=== PATIENT | female | born 2000 | race Caucasian/White ===

== ENCOUNTER 2018-09-25 22:47 | Emergency (ER) | payer OTHER, SELFPAY ==
[2018-09-25 22:48] VITALS: PULSE 101; RESP 18; TEMP 37.4; O2SAT 100; BMI 52.6
[2018-09-25] MEDS: Ondansetron 4 MG/2 ML Vial IV (23:28)
[2018-09-25] MEDS: Morphine 4 MG/ML Syringe IV (23:28)
[2018-09-25 23:47] LABS: Absolute Lymphocyte Count 2.32 X10^3/ul (0.83-4.51); Absolute Neutrophil Count 11.8 X10^3/uL (2.0-7.7); Basophil# 0.04 X10^3/uL; Basophil% 0.3 % (0-1); Eosinophil# 0.16 X10^3/uL; Hematocrit 41.7 % (37-47); Lymphocyte # 2.32 X10^3/ul (4.0); Lymphocyte % 14.8 % (19-41); Mean Corp Hgb Conc 33.6 g/gl (32-36); Mean Corpuscular Hgb 28.2 pg (27.0-32.0); Mean Corpuscular Volume 84.1 fL (81-99); Mean Platelet Vol. 8.6 fl (6.2-12.0); Monocyte# 1.32 X10^3/uL; Monocyte% 8.4 % (0-10); Neutrophil # 11.76 X10^3/uL (2.7-7.7); Neutrophil % 75.1 % (47-70); POSITIVE COUNT NO; POSITIVE DIFFERENTIAL NO; POSITIVE MORPHOLOGY NO; Platelet Count 281 K/mm3 (150-450); RBC Distribution Width CV 12.5 % (11.6-14.6); RBC Distribution Width SD 37.5 fl (35.1-43.9); Red Blood Count 4.96 M/mm3 (4.2-5.4); White Blood Count 15.7 K/mm3 (4.4-11.0)
[2018-09-25 23:55] LABS: Prothrombin Time (Protime)PT. 13.5 SECONDS (11.7-14.9)
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
[2018-09-26 00:01] LABS: BUN 11 mg/dL (7-18); Creatinine, Serum 0.75 mg/dL (0.55-1.02); Glucose 110 mg/dL (74-106)
[2018-09-26 00:02] LABS: ALB/GLOB Ratio 0.8 RATIO (0.9-2.4); AST(SGOT) 18 U/L (15-37); Alanine Aminotransfer ALT/SGPT 24 U/L (13-56); Albumin, Serum 3.7 g/dL (3.2-5.0); Alkaline Phosphatase 100 U/L (45-117); Anion Gap 7 (5-15); BUN/Creat Ratio 14.6 RATIO (10-20); Calcium,Total 9.1 mg/dL (8.5-10.1); Chloride 108 mmol/L (98-107); EST Glomerular Filtration Rate 104 mL/min (>60); Est Glom Filt Rate - Afr Amer 125 mL/min (>60); Estimated Creatinine Clearance 94.63 ml/min; Globulin 4.4 g/dL (2.2-4.2); Potassium 3.3 mmol/L (3.5-5.1); Protein, Total 8.1 g/dL (6.4-8.2); Sodium Level 138 mmol/L (136-145)
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
[2018-09-26 00:21] LABS: Alcohol, Blood (Medical)-Serum < 3.0 mg/dL
[2018-09-26 00:35] LABS: Pregnancy, Serum, hCG Quali. NEGATIVE Negative (0-9 Nonpreg)
[2018-09-26 00:47] VITALS: BP 135/80; PULSE 86; RESP 14; O2SAT 98
[2018-09-26 02:00] VITALS: BP 141/89; PULSE 85; RESP 16; O2SAT 99
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
[2018-09-26 03:10] VITALS: BP 146/90; PULSE 95; RESP 14; O2SAT 98
== END 2018-09-26 03:12 | disposition home or self-care (01) ==
PROVIDERS: Emergency Provider Emergency Medicine
DX: S43.402A Unspecified sprain of left shoulder joint, initial encounter (principal); S13.4XXA Sprain of ligaments of cervical spine, initial encounter; S50.01XA Contusion of right elbow, initial encounter; S80.811A Abrasion, right lower leg, initial encounter; R06.00 Dyspnea, unspecified; R68.84 Jaw pain; V89.2XXA Person injured in unspecified motor-vehicle accident, traffic, initial encounter; Y93.9 Activity, unspecified; Y92.9 Unspecified place or not applicable; Z72.0 Tobacco use
CPT/HCPCS: 70450; 70486; 71260; 72125; 73030; 73080; 73564; 73590; 74177; 80053; 80320; 84703; 85025; 85610; 96374; 96375; 99285; Q9967; A4216; G0480; J2405

== ENCOUNTER 2020-08-26 13:16 | Emergency (ER) | payer SELFPAY ==
[2020-08-26 13:17] VITALS: BP 127/71; PULSE 96; RESP 18; TEMP 36.4; O2SAT 97; BMI 43.9
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
--- NOTE | 2020-08-26 13:35 | ED.VIS.GEN ---
History of Present Illness Chief Complaint: Headache Informant: Patient Narrative: 20-year-old female with no past medical history presents with concern for 4 days of headache. States it is been intermittent. Aching and diffuse. Denies any fever, chills, neck pain. States she has intermittent nausea without vomiting. Denies any head injury. Past Medical History - Allergies and Home Meds Allergies/Adverse Reactions: Allergies tetanus and diphtheria toxoids Allergy (Verified 08/26/20 13:18) Hives Primary Care Physician: Ildefonso Hamilton MD [Primary Care Provider] - Prior records reviewed: Yes Past Medical History: None Surgical History: no surgical history Lives: With Family Smoking Status: Current every day smoker Alcohol: None Drugs: None Review of Systems General: Denies: Chills, Fever, Sweats Eyes: Denies: Visual changes - bilaterally, Diplopia ENT: Denies: Rhinorrhea, Sore throat Cardiovascular: Denies: Chest pain, Palpitations Respiratory: Denies: Dyspnea, Cough, Dyspnea on exertion Gastrointestinal: Denies: Abdominal pain, Nausea, Vomiting, Diarrhea, Melena, Hematochezia Genitourinary: Denies: Dysuria, Hematuria, Frequency Musculoskeletal: Denies: Back pain, Extremity Pain Skin: Denies: Rash, Wounds Neurological: Reports: Headache. Denies: Weakness, Numbness Physical Exam Vital Signs/Narrative: Vital Signs Temp Pulse Resp BP Pulse Ox 08/26/20 13:17 97.5 F L 96 18 127/71 H 97 Inital Vital Signs reviewed: Yes General: Well nourished, Well developed, No Acute Distress Head: Normocephalic, Atraumatic Eyes: Perrl, EOMI ENT: Moist mucous membranes, No rhinorrhea Neck: Supple, Nontender Cardiovascular: Regular rate, Regular rhythm, No murmurs Respiratory: No distress, CTA bilaterally, Chest nontender Abdomen: Soft, Nontender, Nondistended, Normal bowel sounds Back: Nontender, Normal Inspection Extremities: Nontender, No edema Skin: Normal color, No rash Neurological: Alert, Oriented x3, Cranial nerves II-XII grossly intact, Normal Strength, Normal Sensation Psychological: Normal affect, Normal Mood Diagnostic/Tx/Re-eval Clinical Impression(s) from Imaging Studies Brain CT 08/26/20 13:34 IMPRESSION: Normal unenhanced CT scan of the brain. Electronically Signed: Lopez Paul MD at 15:02 EST , Service support , Laboratory Data 08/26/20 14:15 Urine Color Yellow Urine Clarity Sl. Cloudy Urine pH 7.0 Ur Specific [place] 1.010 Urine Protein 15 H Urine Glucose (UA) Normal Urine Ketones Negative Urine Occult Blood Negative Urine Nitrite Negative Urine Bilirubin Negative Urine Urobilinogen Normal Ur Leukocyte Esterase 100 H Urine RBC 0 SEEN Urine WBC 0-5 SEEN Ur Squamous Epith Cells 0-5 SEEN Urine Bacteria 1+ Urine Mucus 0 SEEN Urine Test Negative - Medical Decision Making Appears well and nontoxic. Vital signs within normal limits. No focal deficit. CT brain negative. Patient was given 1 L of normal saline, Reglan, Benadryl, Toradol. Patient continued to have a headache and was given Decadron. On reevaluation at 1645 patient is continuing to complain of a headache. States it feels more occipital at this time. CTA was ordered and patient was given magnesium. Patient will be signed out to oncoming physician pending CTA of the head and neck. Impression: 1. Acute headache ED Disposition - Plan for ED Patient: Referrals: Ildefonso Hamilton MD [Primary Care Provider] -
[2020-08-26 14:22] LABS: Mucous, Urine 0 SEEN /hpf (<or=2+); Red Blood Cells-Urine 0 SEEN /hpf (0-5)
[2020-08-26 14:28] LABS: Color, Urine Yellow (Yellow); Glucose, Dipstick Normal (Normal); Ketone-Dipstick Negative (Negative); Leukocyte Esterase-Dipstick 100 /ul (Negative); Nitrite-Dipstick Negative (Negative); Occult Blood-Urine Negative /ul (Negative); Protein-Dipstick 15 mg/dl (Negative); Urine Bilirubin Dipstick Negative (Negative); Urine Clarity Sl. Cloudy (Clear); Urine Urobilinogen Normal (Normal)
[2020-08-26] MEDS: Metoclopramide 10 MG/2 ML Vial 5 MG IV (14:28)
[2020-08-26] MEDS: DiphenhydrAMINE 50 MG/ML Syringe 25 MG IV (14:28)
[2020-08-26] MEDS: 0.9% Normal Saline 1,000 ML 999 ML IV (14:28)
[2020-08-26 14:31] LABS: Internal QC Validated? YES +Cl - CLEAR BKGD; Pregnancy, Urine Negative Negative
[2020-08-26 14:34] LABS: Bacteria 1+ /hpf (None Seen); Squamous Epithelial Cells - UA 0-5 SEEN /hpf (5-10); White Blood Cells 0-5 SEEN /hpf (0-5)
[2020-08-26 16:03] VITALS: BP 129/77; PULSE 77; RESP 16; O2SAT 100
[2020-08-26] MEDS: dexAMETHasone 10 MG/ML Vial IV (16:14)
[2020-08-26] MEDS: Ketorolac 15 MG/ML Vial IV (16:14)
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
[2020-08-26 18:03] VITALS: BP 146/86; PULSE 73; RESP 16; O2SAT 98
[2020-08-26 20:18] VITALS: BP 128/75; PULSE 75; RESP 16
== END 2020-08-26 20:19 | disposition home or self-care (01) ==
PROVIDERS: Emergency Provider Emergency Medicine
DX: R51.9 Headache, unspecified (principal); R11.0 Nausea; F17.200 Nicotine dependence, unspecified, uncomplicated
CPT/HCPCS: 70450; 70496; 70498; 81001; 81025; 96361; 96365; 96366; 96374; 96375; 99284; J7030; Q9967; A4216

== ENCOUNTER 2020-09-13 14:36 | Emergency (ER) | payer SELFPAY ==
[2020-09-13 14:36] VITALS: BP 137/79; PULSE 79; RESP 18; TEMP 36.6; O2SAT 98; BMI 49.4
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
[2020-09-13] MEDS: dexAMETHasone 4 MG Tablet 8 MG PO (15:26)
== END 2020-09-13 15:27 | disposition home or self-care (01) ==
LOC: ED 15:15
PROVIDERS: Emergency Provider Emergency Medicine
DX: J03.90 Acute tonsillitis, unspecified (principal); F17.200 Nicotine dependence, unspecified, uncomplicated
CPT/HCPCS: 99283

== ENCOUNTER → 2021-07-23 16:26 | Outpatient (CLI) | payer OTHER, SELFPAY ==
[2021-07-23 17:30] LABS: Absolute Lymphocyte Count 1.83 X10^3/uL (0.83-4.51); Absolute Neutrophil Count 7.1 X10^3/uL (2.0-7.7); Basophil# 0.04 X10^3/uL; Basophil% 0.4 % (0-1); Eosinophil# 0.16 X10^3/uL; Eosinophils% 1.6 % (0-5); Hematocrit 38.7 % (37-47); Hemoglobin 12.9 g/dL (12.0-15.0); Lymphocyte # 1.83 X10^3/ul (0.83-4.51); Lymphocyte % 18.2 % (19-41); Mean Corp Hgb Conc 33.3 g/dL (32-36); Mean Corpuscular Hgb 28.5 pg (27.0-32.0); Mean Corpuscular Volume 85.4 fL (81-99); Mean Platelet Vol. 8.6 fl (6.2-12.0); Monocyte# 0.83 X10^3/uL; Monocyte% 8.3 % (0-10); NRBC Flagged by Analyzer 0 % (0-5); Neutrophil # 7.12 X10^3/uL (2.7-7.7); Platelet Count 247 K/mm3 (150-450); RBC Distribution Width CV 12.1 % (11.6-14.6); RBC Distribution Width SD 37.9 fl (35.1-43.9); Red Blood Count 4.53 M/mm3 (4.2-5.4)
[2021-07-23 17:41] LABS: Glucose Challenge Gest 1H 50g 127 mg/dL (70-140)
[2021-07-23 18:16] LABS: Amphetamine Urine VISTA NEGATIVE (<1000 ng/mL); Barbiturate Urine VISTA NEGATIVE (< 200 ng/mL); Benzodiazepine Urine VISTA NEGATIVE (< 200 ng/mL); Cocaine Urine VISTA NEGATIVE (< 300 ng/mL); Ecstacy Urine VISTA NEGATIVE (< 500 ng/mL); Methadone Urine VISTA NEGATIVE (< 300 ng/mL); PCP Urine VISTA NEGATIVE (< 25 ng/mL); THC Urine VISTA POSITIVE (< 50 ng/mL); Vista UDS pH Range 6
[2021-07-24 08:46] LABS: HIV - WCH Non-Reactive (Nonreactive); Hepatitis B Surface Antigen Non-Reactive (Nonreactive); Hepatitis C Antibody Non-Reactive (Nonreactive); Rubella IgG Reactive (Nonreactive); Syphilis Antibodies Non-reactive
[2021-07-26 02:07] LABS: Chlamydia By Nucleic Acid AMP Negative (Negative)
[2021-07-26 07:45] LABS: Gonococcus By Nucleic Acid AMP Negative (Negative)
[2021-07-29 13:27] LABS: HPV Reflexed? NOT INDICATED
== END ==
PROVIDERS: Visit Provider Obstetrics & Gynecology
DX: Z34.90 Encounter for supervision of normal pregnancy, unspecified, unspecified trimester (principal)
CPT/HCPCS: 36415; 80307; 82950; 85025; 86703; 86762; 86780; 86803; 86850; 86900; 86901; 87086; 87088; 87340; 87491; 87591; 88175; G0145

== ENCOUNTER → 2021-12-18 | Outpatient (CLI) | payer MEDICAID, SELFPAY ==
[2021-12-18 10:34] LABS: Absolute Lymphocyte Count 2.59 X10^3/uL (0.83-4.51); Absolute Neutrophil Count 10.8 X10^3/uL (2.0-7.7); Basophil# 0.06 X10^3/uL; Basophil% 0.4 % (0-1); Eosinophil# 0.45 X10^3/uL; Eosinophils% 2.9 % (0-5); Hematocrit 38.1 % (37-47); Hemoglobin 12.8 g/dL (12.0-15.0); Lymphocyte # 2.59 X10^3/ul (0.83-4.51); Lymphocyte % 16.8 % (19-41); Mean Corp Hgb Conc 33.6 g/dL (32-36); Mean Corpuscular Hgb 29.2 pg (27.0-32.0); Mean Platelet Vol. 8.4 fl (6.2-12.0); Monocyte% 7.8 % (0-10); NRBC Flagged by Analyzer 0 % (0-5); Neutrophil # 10.84 X10^3/uL (2.7-7.7); Neutrophil % 70.3 % (47-70); Platelet Count 255 K/mm3 (150-450); RBC Distribution Width CV 12.5 % (11.6-14.6); RBC Distribution Width SD 39.4 fl (35.1-43.9); Red Blood Count 4.38 M/mm3 (4.2-5.4); White Blood Count 15.4 K/mm3 (4.4-11.0)
[2021-12-18 10:59] LABS: Glucose Challenge Gest 1H 50g 101 mg/dL (70-140)
[2021-12-18 12:53] LABS: Amphetamine Urine VISTA NEGATIVE (<1000 ng/mL); Barbiturate Urine VISTA NEGATIVE (< 200 ng/mL); Benzodiazepine Urine VISTA NEGATIVE (< 200 ng/mL); Cocaine Urine VISTA NEGATIVE (< 300 ng/mL); Ecstacy Urine VISTA NEGATIVE (< 500 ng/mL); Methadone Urine VISTA NEGATIVE (< 300 ng/mL); PCP Urine VISTA NEGATIVE (< 25 ng/mL); THC Urine VISTA NEGATIVE (< 50 ng/mL); Vista UDS pH Range 6
== END | disposition home or self-care (01) ==
PROVIDERS: Referring Provider Nurse Practitioner Women's Health; Visit Provider Nurse Practitioner Women's Health
DX: O99.322 Drug use complicating pregnancy, second trimester (principal); F12.10 Cannabis abuse, uncomplicated; Z3A.26 26 weeks gestation of pregnancy; Z13.1 Encounter for screening for diabetes mellitus
CPT/HCPCS: 36415; 80307; 82950; 85025; 86850; 86900; 86901

== ENCOUNTER → 2022-01-09 | Outpatient (CLI) | payer MEDICAID, SELFPAY ==
--- NOTE | 2022-01-09 08:59 | US_ITS ---
STUDY: SECOND AND THIRD TRIMESTER OBSTETRICAL ULTRASOUND REASON FOR EXAM: Female, 21 years old growth LMP: 05/25/2021. TECHNIQUE: Transabdominal TECHNICAL QUALITY: Adequate. PRIOR ULTRASOUND: None. FINDINGS: There is a single intrauterine fetus. The fetus is in a cephalic presentation. There is demonstrated cardiac activity with a heart rate of 158 bpm. There is a normal amniotic fluid volume. The largest amniotic fluid pocket measures 6.4 cm. The amniotic fluid index (KARLA) is 17.9 cm. The placenta is fundal and posterior in location. There are Grade 1 placental changes. The cervix measures 3.6 cm in length. The adnexal regions are not visualized. BIOMETRY: BPD: 8.29 cm: 33 weeks, 2 days HC: 30.37 cm: 33 weeks, 5 days AC: 28.91 cm: 32 weeks, 6 days FL: 5.99 cm: 31 weeks, 1 days CI: 81% FL/BPD: 72% FL/HC: FL/AC: 21% HC/AC: 1.05 age by current US: 32 weeks, 4 days. ENEDELIA by current US: 03/02/2022. Estimated weight: 2002 grams, +/- 300 grams, 79 %. Age by LMP: 31 weeks, 2 days. ENEDELIA by LMP: 03/11/2022. US/OB Limited With Biometrics IMPRESSION: Single live intrauterine gestation with a mean gestational age of 32 weeks and 4 days. Electronically Signed: Lopez Paul MD at 10:35 EDT ,
== END | disposition home or self-care (01) ==
LOC: OPUS 08:57
PROVIDERS: Referring Provider Obstetrics & Gynecology; Visit Provider Obstetrics & Gynecology
DX: U07.1 COVID-19 (principal)
CPT/HCPCS: 76816

== ENCOUNTER → 2022-01-21 | Outpatient (CLI) | payer MEDICAID, SELFPAY ==
--- NOTE | 2022-01-21 12:25 | US_ITS ---
STUDY: OBSTETRICAL ULTRASOUND - BIOPHYSICAL PROFILE REASON FOR EXAM: Female, 21 years old BPP for obesity in LMP: 06/04/2021. PRIOR ULTRASOUND: Comparison is made with prior study dated 01/09/2022. TECHNIQUE: Transabdominal TECHNICAL QUALITY: Adequate. FINDINGS: There is a single intrauterine fetus. The fetus is in a cephalic presentation. There is demonstrated cardiac activity with a heart rate of 132 bpm. There is a normal amniotic fluid volume. The largest amniotic fluid pocket measures 4.9 cm. The amniotic fluid index (KARLA) is 13.2 cm. The placenta is fundal and posterior. There are Grade 1 placental changes. Age by LMP: 33 weeks, 0 days. ENEDELIA by LMP: 03/11/2022. BIOPHYSICAL PROFILE: Breathing Movements (FBM): 2 Gross Body Movements (GBM): 2 Tone (FT): 2 Amniotic Fluid Volume (AFV): 2 TOTAL SCORE: / US/Biophysical Prof W/O Non Stres IMPRESSION: Normal biophysical profile of 03/16. Electronically Signed: Lopez Paul MD at 14:01 EDT ,
== END | disposition home or self-care (01) ==
LOC: OPUS 12:23
PROVIDERS: Visit Provider Obstetrics & Gynecology
DX: O99.210 Obesity complicating pregnancy, unspecified trimester (principal); Z3A.00 Weeks of gestation of pregnancy not specified
CPT/HCPCS: 76819

== ENCOUNTER → 2022-01-30 | Outpatient (CLI) | payer MEDICAID, SELFPAY ==
--- NOTE | 2022-01-30 12:59 | US_ITS ---
STUDY: OBSTETRICAL ULTRASOUND - BIOPHYSICAL PROFILE REASON FOR EXAM: Female, 21 years old. OBESITY -- WEEKLY BPP PRIOR ULTRASOUND: 01/21/2022 TECHNIQUE: Transabdominal TECHNICAL QUALITY: Adequate. FINDINGS: There is a single intrauterine fetus. The fetus is in a cephalic presentation. There is demonstrated cardiac activity with a heart rate of 147 bpm. There is a normal amniotic fluid volume. The largest amniotic fluid pocket measures 8.4 cm. The amniotic fluid index (KARLA) is 20.2 cm. The placenta is fundal in location. There are Grade 1 placental changes. Age by LMP: 34 weeks, 2 days. ENEDELIA by LMP: 8.3.22. . BIOPHYSICAL PROFILE: Breathing Movements (FBM): 2 Gross Body Movements (GBM): 2 Tone (FT): 2 Amniotic Fluid Volume (AFV): 2 TOTAL SCORE: US/Biophysical Prof W/O Non Stres IMPRESSION: Normal biophysical profile of 03/16. There is a single live intrauterine with a heart rate of 147 bpm. Electronically Signed: Steve Puente MD at 14:58 EDT Reading Location ID and State: [facility] / [place] , Service support ,
== END | disposition home or self-care (01) ==
LOC: OPUS 12:57
PROVIDERS: Visit Provider Obstetrics & Gynecology
DX: O99.210 Obesity complicating pregnancy, unspecified trimester (principal); Z3A.00 Weeks of gestation of pregnancy not specified
CPT/HCPCS: 76819

== ENCOUNTER → 2022-02-06 | Outpatient (CLI) | payer MEDICAID, SELFPAY ==
--- NOTE | 2022-02-06 08:02 | US_ITS ---
STUDY: SECOND AND THIRD TRIMESTER OBSTETRICAL ULTRASOUND REASON FOR EXAM: Female, 21 years old growth -- obesity, covid LMP: 06/04/2021 TECHNIQUE: Transabdominal TECHNICAL QUALITY: Adequate. PRIOR ULTRASOUND: Comparison is made with prior study dated 01/30/2022 FINDINGS: There is a single intrauterine fetus. The fetus is in a cephalic presentation. There is demonstrated cardiac activity with a heart rate of 137 bpm. There is a normal amniotic fluid volume. The largest amniotic fluid pocket measures 8.3 cm. The amniotic fluid index (KARLA) is 23.7 cm. This is upper limits of normal. The placenta is fundal in location. There are Grade 1 placental changes. The cervix measures 3 cm in length. The adnexal regions are not visualized. BIOMETRY: BPD: 9.3 cm: 37 weeks, 4 days HC: 33.6 on: 38 weeks, 4 days AC: 33 cm: 36 weeks, 6 days FL: 7 cm: 35 weeks, 6 days CI: 80% FL/BPD: 76% FL/HC: FL/AC: 21% HC/AC: 1.02 age by current US: 37 weeks, 1 days. ENEDELIA by current US: 02/26/2022. Estimated weight: 3070 grams, +/- 461 grams, 88 %. age by prior US: 36 weeks, 4 days. ENEDELIA by prior US: 03/02/2022. Age by LMP: 35 weeks, 2 days. ENEDELIA by LMP: 03/11/2022. IMPRESSION: Single live intrauterine gestation with a mean gestational age of 36 weeks and 4 days. The measurements obtained today following within the normal expected range. Electronically Signed: Lopez Paul MD at 9:14 EDT , STUDY: OBSTETRICAL ULTRASOUND - BIOPHYSICAL PROFILE REASON FOR EXAM: Female, 21 years old growth -- obesity, covid LMP: PRIOR ULTRASOUND: None. TECHNIQUE: TECHNICAL QUALITY: Adequate. FINDINGS: BIOPHYSICAL PROFILE: Breathing Movements (FBM): 0 Gross Body Movements (GBM): 2 Tone (FT): 2 Amniotic Fluid Volume (AFV): 2 TOTAL SCORE: US/OB Limited With Biometrics IMPRESSION: biophysical profile of 01/14. Electronically Signed: Lopez Paul MD at 9:15 EDT ,
== END | disposition home or self-care (01) ==
PROVIDERS: Visit Provider Obstetrics & Gynecology
DX: O98.513 Other viral diseases complicating pregnancy, third trimester (principal); O99.213 Obesity complicating pregnancy, third trimester; E66.9 Obesity, unspecified; Z3A.37 37 weeks gestation of pregnancy; U07.1 COVID-19
CPT/HCPCS: 76816; 76819

== ENCOUNTER 2022-02-08 13:00 | Outpatient (CLI) | payer MEDICAID, SELFPAY ==
[2022-02-08 13:09] VITALS: BP 116/70; PULSE 100; TEMP 36.8
[2022-02-08 13:18] VITALS: BMI 55.4
--- NOTE | 2022-02-08 20:48 | OB.TRI.PN_ITS ---
Progress Notes Progress Note: Patient presents for triage evaluation secondary to obesity and recent 6/8 bpp FHT: 140 Moderate variability reactive no decelerations category I tracing [place]: no regular Contractions Assessment and plan: obesity Reactive NST, reassuring maternal and status patient discharged to home to follow-up as scheudled. See problem list details for additional plan information. Charges/Coding Procedures Urinary/Genital 52xxx-59xxx: 19754-52 non-stress test Interp
== END 2022-02-08 14:07 | disposition home or self-care (01) ==
LOC: WPOUT 13:05 → WP 13:06
PROVIDERS: Referring Provider Obstetrics & Gynecology; Visit Provider Obstetrics & Gynecology
DX: O99.210 Obesity complicating pregnancy, unspecified trimester (principal); Z3A.00 Weeks of gestation of pregnancy not specified
CPT/HCPCS: 59025; 59050; 99218; G0378

== ENCOUNTER → 2022-02-13 | Outpatient (CLI) | payer MEDICAID, SELFPAY ==
--- NOTE | 2022-02-13 09:01 | US_ITS ---
STUDY: OBSTETRICAL ULTRASOUND - BIOPHYSICAL PROFILE REASON FOR EXAM: Female, 21 years old well being LMP: 06/04/2021. PRIOR ULTRASOUND: Comparison is made with prior study dated 02/06/2022. TECHNIQUE: Transabdominal TECHNICAL QUALITY: Adequate. FINDINGS: There is a single intrauterine fetus. The fetus is in a cephalic presentation. There is demonstrated cardiac activity with a heart rate of 144 bpm. There is a normal amniotic fluid volume. The largest amniotic fluid pocket measures 7.8 cm. The amniotic fluid index (KARLA) is 26.8 cm. This is in the 97th percentile for a 36 week gestation. The placenta is fundal and posterior in location. There are Grade 1 placental changes. Age by LMP: 36 weeks, 2 days. ENEDELIA by LMP: 03/11/2022. BIOPHYSICAL PROFILE: Breathing Movements (FBM): 2 Gross Body Movements (GBM): 2 Tone (FT): 2 Amniotic Fluid Volume (AFV): 2 TOTAL SCORE: 8 / 8 US/Biophysical Prof W/O Non Stres IMPRESSION: Normal biophysical profile of 8/8. The amniotic fluid index is in the 97th percentile for 36 week gestation. Electronically Signed: Lopez Paul MD at 9:51 EDT ,
== END | disposition home or self-care (01) ==
PROVIDERS: Referring Provider Obstetrics & Gynecology; Visit Provider Obstetrics & Gynecology
DX: Z34.93 Encounter for supervision of normal pregnancy, unspecified, third trimester (principal)
CPT/HCPCS: 76819; 87081

== ENCOUNTER → 2022-02-20 | Outpatient (CLI) | payer MEDICAID, SELFPAY ==
--- NOTE | 2022-02-20 08:59 | US_ITS ---
STUDY: OBSTETRICAL ULTRASOUND - BIOPHYSICAL PROFILE REASON FOR EXAM: Female, 21 years old OBESITY LMP: 06/04/2021. PRIOR ULTRASOUND: Comparison is made with prior study dated 02/13/2022. TECHNIQUE: Transabdominal TECHNICAL QUALITY: Adequate. FINDINGS: There is a single intrauterine fetus. The fetus is in a cephalic presentation. There is demonstrated cardiac activity with a heart rate of 155 bpm. There is a normal amniotic fluid volume. The largest amniotic fluid pocket measures 8.1 cm. The amniotic fluid index (KARLA) is 21 cm. The placenta is fundal and posterior in location. There are Grade 2 placental changes. Age by LMP: 37 weeks, 2 days. ENEDELIA by LMP: 03/11/2022. BIOPHYSICAL PROFILE: Breathing Movements (FBM): 2 Gross Body Movements (GBM): 2 Tone (FT): 2 Amniotic Fluid Volume (AFV): 2 TOTAL SCORE: US/Biophysical Prof W/O Non Stres IMPRESSION: Normal biophysical profile of 03/16. Electronically Signed: Lopez Paul MD at 9:53 EDT ,
== END | disposition home or self-care (01) ==
LOC: OPUS 08:53
PROVIDERS: Visit Provider Obstetrics & Gynecology
DX: O99.210 Obesity complicating pregnancy, unspecified trimester (principal); Z3A.00 Weeks of gestation of pregnancy not specified
CPT/HCPCS: 76819

== ENCOUNTER → 2022-02-27 | Outpatient (CLI) | payer MEDICAID, SELFPAY ==
--- NOTE | 2022-02-27 09:06 | US_ITS ---
STUDY: OBSTETRICAL ULTRASOUND - BIOPHYSICAL PROFILE REASON FOR EXAM: Female, 21 years old wellbeing LMP: 06/04/2021. PRIOR ULTRASOUND: Comparison made with prior examination dated 02/20/2022. TECHNIQUE: Transabdominal TECHNICAL QUALITY: Adequate. FINDINGS: There is a single intrauterine fetus. The fetus is in a cephalic presentation. There is demonstrated cardiac activity with a heart rate of 158 bpm. There is a normal amniotic fluid volume. The largest amniotic fluid pocket measures 6. cm. The amniotic fluid index (KARLA) is 16.2 cm. The placenta is fundal and posterior in location. There are Grade 2 placental changes. Age by LMP: 30 weeks, 2 days. ENEDELIA by LMP: 03/11/2022. BIOPHYSICAL PROFILE: Breathing Movements (FBM): 2 Gross Body Movements (GBM): 2 Tone (FT): 2 Amniotic Fluid Volume (AFV): 2 TOTAL SCORE: 8 / 8 US/Biophysical Prof W/O Non Stres IMPRESSION: Normal biophysical profile of 03/16. Electronically Signed: Lopez Paul MD at 10:17 EDT ,
== END | disposition home or self-care (01) ==
LOC: OPUS 08:57
PROVIDERS: Referring Provider Obstetrics & Gynecology; Visit Provider Obstetrics & Gynecology
DX: O40.3XX0 Polyhydramnios, third trimester, not applicable or unspecified (principal); Z3A.00 Weeks of gestation of pregnancy not specified
CPT/HCPCS: 76819

== ENCOUNTER 2022-03-05 07:00 | Outpatient (CLI) | payer MEDICAID, SELFPAY ==
[2022-03-05 07:28] VITALS: BP 137/68; PULSE 100; O2SAT 98
[2022-03-05 07:29] VITALS: TEMP 36.8; BMI 57.0
--- NOTE | 2022-03-05 10:57 | OB.TRI.HP_ITS ---
HPI - General General Date of Admission: 02/03/22 HPI Narrative NARAYAN MACHADO, is a 22 y/o @ 39 weeks who presents to L&D for NST due to polyhydramnios. She was scheduled for an induction initially but there is a staffing issue. An NST was ordered for reassurance and she is rescheduled for Wednesday am. (03/09/22) Maternal Data Information ENEDELIA Calculator Estimated Delivery Date Method Current WG Current Estimate 03/11/22 Ultrasound #1 39w 4d Other Estimates 03/01/22 LMP (Certain) 41w 0d PFSH PFSH Medical History Anxiety and depression Lab test positive for detection of COVID-19 virus Migraines Ovarian cyst Home Medications vitamin#30 30 mg iron-10 mg iron-folic acid 1 mg-omg3 capsule 1 cap PO DAILY 07/23/21 [History Last Taken 1 Day Ago ~02/07/22] Allergy/AdvReac Type Severity Reaction Status Date / Time venom-wasp Allergy Severe Anaphylaxis Verified 03/05/22 07:39 tetanus and diphtheria Allergy Hives Verified 02/27/22 09:58 toxoids Family History Other Cancer Diabetes Hypertension Kidney disease Surgical History H/O wisdom tooth extraction Myringotomy tube status Social History household members: significant other and friend(s) current occupational status: employed pets and animals: Yes Smoking Status: Former smoker second hand exposure: Yes alcohol intake: never substance use type: does not use caffeine: Yes seatbelt use: always do you feel safe at home: Yes additional social history: BF- Beto History 1 Elective abortions Hx Para Spontaneous abortions Hx # Term Pregnancies Ectopic pregnancies Hx # Pregnancies Multiple births # of living children Visit Details Expected Delivery Route/Plan Labor Preferences- CB/BF classes: planned labor support person: Beto labor intervention preferences: [] pain management options preferred: epidural cut cord/dad catch: cord : unsure PP control planned: discussed. discussed possible routes of delivery and associated risks: [] special requests: [] Plans Covid status: unvaccinated and plans to decline vaccine during the . Pt had covid in May 2021 Flu vaccine: unvaccinated, same as above Tdap vaccine: no/allergy Rhogam: given LARC form signed: yes movement and labor precautions reviewed. Problem list reviewed and updated with the most current plan of care details and appropriate orders placed. Relevant counseling for the gestational age provided. Continue routine care and follow up unless otherwise noted in visit notes/problem list details OB Flowsheet Initial Weight: 275 lb Date -?-?-?-?-?-?-?-?-?-?-?-?- EGA Weight BP Urine Prot -?-?-?-?-?-?-?-?-?-?-?-?- Glucose FHR FuHt Pres Dilation -?-?-?-?-?-?-?-?-?-?-?-?- Effaced St Visit Note 07/23/21 -?-?-?-?-?-?-?-?-?-?-?-?- 7w 0d 273 lb (-2 lb) 110/70 -?-?-?-?-?-?-?-?-?-?-?-?- -?-?-?-?-?-?-?-?-?-?-?-?- JV- CRL not cons istent with LMP, ENEDELIA 03/11/2022 08/12/21 -?-?-?-?-?-?-?-?-?-?-?-?- 9w 6d 278 lb (+3 lb) 118/70 Negative -?-?-?-?-?-?-?-?-?-?-?-?- Negative 171 -?-?-?-?-?-?-?-?-?-?-?-?- bedside us for h eart tones. pt counseled on risks of THC use in . 09/10/21 -?-?-?-?-?-?-?-?-?-?-?-?- 14w 0d 275 lb 8 oz (+8 oz) 138/82 -?-?-?-?-?-?-?-?-?-?-?-?- 150 -?-?-?-?-?-?-?-?-?-?-?-?- JV-no cramping o r bleeding. no complaints. discussed THC use again and she stopped. 10/06/21 -?-?-?-?-?-?-?-?-?-?-?-?- 17w 5d 281 lb (+6 lb) 122/80 -?-?-?-?-?-?-?--?-?-?-?-?- 150 -?-?-?-?-?-?-?-?-?-?-?-?- SM- no vb lof cr amping 11/03/21 -?-?-?-?-?-?-?-?-?-?-?-?- 21w 5d 289 lb (+14 lb) 108/80 Negative -?-?-?-?-?-?-?-?-?-?-?-?- Negative 150 22 -?-?-?-?-?-?-?-?-?-?-?-?- SM- SM- no vb lof good fm no re gular ctx discussed healthy wegiht gain, echo 12/04/21 -?-?-?-?-?-?-?-?-?-?-?-?- 26w 1d 297 lb (+22 lb) 110/70 -?-?-?-?-?-?-?-?-?-?-?-?- 145 26 -?-?-?-?-?-?-?-?-?-?-?-?- SM- no vb lof go od fm no regular ctx 12/18/21 -?-?-?-?-?-?-?-?-?-?-?-?- 28w 1d 300 lb 4 oz (+25 lb 4 oz) 116/74 Negative -?-?-?-?-?-?-?-?-?-?-?-?- Negative 153 29 -?-?-?-?-?-?-?-?-?-?-?-?- MH-NO VB, LOF. G ood FM. 28 wk labs, rhogam, larc. No tdap. Growth US is 01/0912/31/21 -?-?-?-?-?-?-?-?-?-?-?-?- 30w 0d 303 lb (+28 lb) 128/86 Negative -?-?-?-?-?-?-?-?-?-?-?-?- Negative 154 -?-?-?-?-?-?-?-?-?-?-?-?- JV- normal GCT. growth from last week report pending from [facility]. plan for weekly nsts starting 32 weeks. 01/14/22 -?-?--?-?-?-?-?-?-?-?-?-?- 32w 0d 307 lb 8 oz (+32 lb 8 oz) 130/82 Negative -?-?-?-?-?-?-?-?-?-?-?-?- Negative 150 -?-?-?-?-?-?-?-?-?-?-?-?- JV- reactive nst but difficult to get to that point so will start bpps 01/30/22 -?-?-?-?-?-?-?-?-?-?-?-?- 34w 2d 310 lb (+35 lb) 114/80 Negative -?-?-?-?-?-?-?-?-?-?-?-?- Negative 150 36 -?-?-?-?-?-?-?-?-?-?-?-?- SM- no vb lof go od fm n oregular ctx 02/06/22 -?-?--?-?-?-?-?-?-?-?-?-?- 35w 2d 315 lb (+40 lb) 114/80 Negative -?-?-?-?-?-?-?-?-?-?-?-?- Negative 140 -?-?-?-?-?-?-?-?-?-?-?-?- JV- bpp 01/14, nst reactive, however, would like for her to return to L&D wednesday for rpt nst 02/13/22 -?-?-?-?-?-?-?-?-?-?-?-?- 36w 2d 314 lb (+39 lb) 113/84 -?-?-?-?-?-?-?-?-?-?-?-?- 150 37 Cephalic 1.5 -?-?-?-?-?-?-?-?-?-?-?-?- 60 -2 SM- n ovb lof good fm no regular ctx gbs done 02/27/22 -?-?-?-?-?-?-?-?-?-?-?-?- 38w 2d Negative -?-?-?-?-?-?-?-?-?-?-?-?- Negative 140 40 Cephalic 1 .5 -?-?-?-?-?-?-?-?-?-?-?-?- 60 -2 SM- no vb lof good fm no regular ctx discussed IOL 39 weeks Pit FB ROS Constitutional Constitutional: Reports systems reviewed and no addt'l complaints, except as documented Gastrointestinal Gastrointestinal: Denies bloating, constipation, cramping, diarrhea, nausea or vomiting Genitourinary Genitourinary: Reports other Details: Denies vaginal odor, vaginal bleeding, or vaginal discharge ; Denies difficulty urinating or flank pain Physical Exam HEENT normocephalic Resp normal respiratory effort and normal air movement no CVA tenderness Extremity normal to inspection General Extremity: edema bilateral (trace ) NST FHR Rate Baby A Baseline: 140 Variability:: Moderate Accelerations:: 15 x 15 Decelerations:: None NST Reactive:: Yes FHR Category:: Category I Assessment & Plan (1) Encounter for induction of labor: COMMENT: plan 03/05 7am Pit FB IOL for polyhydramnios. (2) Polyhydramnios affecting in third trimester: COMMENT: weekly BPP at [facility] and recommend IOL 39-40. (3) Rh negative state in antepartum period: COMMENT: rhogam 28 wk, prn and pp (4) Lab test positive for detection of COVID-19 virus: COMMENT: 81mg asa, 32 & 36 wk growth US, 6/3 nl growth (5) Obesity affecting : COMMENT: NL GCT at [facility]. encourage healhty weight gain. BMI 54 plan weekly nsts after 32. (6) Marijuana abuse: COMMENT: + tox at [facility]- needs random tox. 12/18 neg (7) Anxiety and depression: COMMENT: h/o while in school, no meds encouraged counseling. (8) H/O congenital anomaly of heart: COMMENT: echo scheduled. Older sister (dec @ 3months if age aortic stenosis); patient's mother had hole in heart no surgery; BF and BF brother born with heart murmur. NL growth US with MFM on 12/11 (9) Supervision of normal : COMMENT: PRR ENEDELIA: 03/01/22 girl Chava BF: Beto (10) : QUALIFIERS: Weeks of gestation: 38 weeks Qualified Code(s): Z3A.38 - 38 weeks gestation of COMMENT: GBS Negative, anatomy nl, declined genetic and carrier ntd screening. PLAN: Plan nst reactive. DC to home and return wednesday for IOL -return for leaking fluid, vaginal bleeding, decreased movement, or labor. Charges/Coding Multi Select Codes Visit Charges Office Visit/Consults: 92902 OV L3 Est Urinary/Genital Urinary/Genital CPT Codes: 07792-26 non-stress test Interp
--- NOTE | 2022-03-06 14:50 | OB.TRI.PN_ITS ---
Progress Notes Progress Note: Patient presents for triage evaluation secondary to polyhydramnios FHT: 140 Moderate variability reactive no decelerations category I tracing [place]: no regular Contractions Assessment and plan: polyhydramnios Reactive NST, reassuring maternal and status patient discharged to home to follow-up []. See problem list details for additional plan information. Charges/Coding Procedures Urinary/Genital 52xxx-59xxx: 66500-37 non-stress test Interp
== END 2022-03-05 08:30 | disposition home or self-care (01) ==
LOC: WPOUT 07:21 → WP 07:22
PROVIDERS: Referring Provider Obstetrics & Gynecology; Visit Provider Obstetrics & Gynecology
DX: O40.3XX0 Polyhydramnios, third trimester, not applicable or unspecified (principal); Z3A.39 39 weeks gestation of pregnancy; Z87.891 Personal history of nicotine dependence; Z86.16 Personal history of COVID-19; Z28.310 Unvaccinated for COVID-19
CPT/HCPCS: 59025; 59050; 99218; G0378

== ENCOUNTER → 2022-03-06 | Outpatient (CLI) | payer MEDICAID, SELFPAY ==
--- NOTE | 2022-03-06 08:53 | US_ITS ---
STUDY: OBSTETRICAL ULTRASOUND - BIOPHYSICAL PROFILE REASON FOR EXAM: Female, 22 years old wellbeing LMP: 06/04/2021. PRIOR ULTRASOUND: None. TECHNIQUE: Comparison is made with prior study dated 02/27/2022. TECHNICAL QUALITY: Adequate. FINDINGS: There is a single intrauterine fetus. The fetus is in a cephalic presentation. There is demonstrated cardiac activity with a heart rate of 127 bpm. There is a normal amniotic fluid volume. The largest amniotic fluid pocket measures 6.3 cm. The amniotic fluid index (KARLA) is 16.5 cm. The placenta is fundal and anterior in location. There are Grade 0 placental changes. Age by LMP: 39 weeks, 2 days. ENEDELIA by LMP: 03/11/2022. BIOPHYSICAL PROFILE: Breathing Movements (FBM): 0 Gross Body Movements (GBM): 2 Tone (FT): 2 Amniotic Fluid Volume (AFV): 2 TOTAL SCORE: US/Biophysical Prof W/O Non Stres IMPRESSION: biophysical profile of 01/14. Electronically Signed: Lopez Paul MD at 10:36 EDT ,
== END | disposition home or self-care (01) ==
LOC: OPUS 08:52
PROVIDERS: Visit Provider Obstetrics & Gynecology
CPT/HCPCS: 76819

== ENCOUNTER 2022-03-09 07:00 | Inpatient (IN) | payer MEDICAID, SELFPAY ==
[2022-03-09] VITALS (50 sets, daily range): BP systolic 84–147; BP diastolic 54–93; PULSE 83–192; TEMP 36.7–37.8; O2SAT 87–100; BMI 57.4
[2022-03-09] MEDS: Lactated Ringers 1,000 ML 50 ML IV (07:40)
[2022-03-09 08:00] LABS: Absolute Lymphocyte Count 2.72 X10^3/uL (0.83-4.51); Absolute Neutrophil Count 10.4 X10^3/uL (2.0-7.7); Basophil# 0.05 X10^3/uL; Basophil% 0.3 % (0-1); Eosinophil# 0.33 X10^3/uL; Eosinophils% 2.2 % (0-5); Hematocrit 40.2 % (37-47); Hemoglobin 13.5 g/dL (12.0-15.0); Lymphocyte # 2.72 X10^3/ul (0.83-4.51); Lymphocyte % 18.5 % (19-41); Mean Corp Hgb Conc 33.6 g/dL (32-36); Mean Corpuscular Hgb 28.6 pg (27.0-32.0); Mean Corpuscular Volume 85.2 fL (81-99); Mean Platelet Vol. 8.6 fl (6.2-12.0); Monocyte# 1.02 X10^3/uL; Monocyte% 6.9 % (0-10); NRBC Flagged by Analyzer 0 % (0-5); Neutrophil # 10.42 X10^3/uL (2.7-7.7); Neutrophil % 70.9 % (47-70); Platelet Count 211 K/mm3 (150-450); RBC Distribution Width CV 12.1 % (11.6-14.6); RBC Distribution Width SD 37.2 fl (35.1-43.9); Red Blood Count 4.72 M/mm3 (4.2-5.4); White Blood Count 14.7 K/mm3 (4.4-11.0)
[2022-03-09] MEDS: Oxytocin 30 units/NS 500 ml 30 UNITS/500 ML IV.SOLN IV (08:40)
[2022-03-09 09:53] LABS: Amphetamine Urine VISTA NEGATIVE (<1000 ng/mL); Barbiturate Urine VISTA NEGATIVE (< 200 ng/mL); Benzodiazepine Urine VISTA NEGATIVE (< 200 ng/mL); Cocaine Urine VISTA NEGATIVE (< 300 ng/mL); Ecstacy Urine VISTA NEGATIVE (< 500 ng/mL); Methadone Urine VISTA NEGATIVE (< 300 ng/mL); PCP Urine VISTA NEGATIVE (< 25 ng/mL); THC Urine VISTA NEGATIVE (< 50 ng/mL); Vista UDS pH Range 5
[2022-03-09] MEDS: 0.9% Normal Saline Single 100 ML IV.SOLN. INTRA-UTER (10:20)
--- NOTE | 2022-03-09 10:40 | HP.PCM.OB_ITS ---
HPI - General General Date of Admission: 03/09/22 HPI Narrative NARAYAN MACHADO, is a 22 y/o @ 39 weeks 5 days who presents to L&D for induction of labor for polyhydramnios. Maternal Data Information ENEDELIA Calculator Estimated Delivery Date Method Current WG Current Estimate 03/11/22 Ultrasound #1 39w 5d Other Estimates 03/01/22 LMP (Certain) 41w 1d PFSH PFS Medical History (Updated 03/09/22 @ 07:47 by Elen Luciano) Anxiety and depression Lab test positive for detection of COVID-19 virus Migraines Ovarian cyst Polyhydramnios Home Medications vitamin#30 30 mg iron-10 mg iron-folic acid 1 mg-omg3 capsule 1 cap PO DAILY 07/23/21 [History Last Taken 03/06/22 09:00] Allergy/AdvReac Type Severity Reaction Status Date / Time venom-wasp Allergy Severe Anaphylaxis Verified 03/05/22 07:39 tetanus and diphtheria Allergy Hives Verified 02/27/22 09:58 toxoids Family History Other Cancer Diabetes Hypertension Kidney disease Surgical History (Updated 03/09/22 @ 07:48 by Elen Luciano) H/O wisdom tooth extraction History of surgery Myringotomy tube status Social History household members: significant other and friend(s) current occupational status: employed pets and animals: Yes Smoking Status: Former smoker second hand exposure: Yes alcohol intake: never substance use type: does not use caffeine: Yes seatbelt use: always do you feel safe at home: Yes additional social history: BF- Beto History 1 Elective abortions Hx Para 0 Spontaneous abortions Hx # Term Pregnancies Ectopic pregnancies Hx # Pregnancies Multiple births # of living children Visit Details Expected Delivery Route/Plan Labor Preferences- CB/BF classes: planned labor support person: Beto labor intervention preferences: [] pain management options preferred: epidural cut cord/dad catch: cord : unsure PP control planned: discussed. discussed possible routes of delivery and associated risks: [] special requests: [] Plans Covid status: unvaccinated and plans to decline vaccine during the . Pt had covid in May 2021 Flu vaccine: unvaccinated, same as above Tdap vaccine: no/allergy Rhogam: given LARC form signed: yes movement and labor precautions reviewed. Problem list reviewed and updated with the most current plan of care details and appropriate orders placed. Relevant counseling for the gestational age provided. Continue routine care and follow up unless otherwise noted in visit notes/problem list details OB Flowsheet Initial Weight: 275 lb Date -?-?-?-?-?-?-?-?-?-?--?-?- EGA Weight BP Urine Prot -?-?-?-?-?-?-?-?-?-?-?-?- Glucose FHR FuHt Pres Dilation -?-?-?-?-?-?-?-?-?-?-?-?- Effaced St Visit Note 07/23/21 -?-?-?-?-?-?-?-?-?-?-?-?- 7w 0d 273 lb (-2 lb) 110/70 -?-?-?-?-?-?-?-?-?-?-?-?- -?-?-?-?-?-?-?-?-?-?-?-?- JV- CRL not cons istent with LMP, ENEDELIA 03/11/2022 08/12/21 -?-?-?-?-?-?-?-?-?-?-?-?- 9w 6d 278 lb (+3 lb) 118/70 Negative -?-?-?-?-?-?-?-?-?-?-?-?- Negative 171 -?-?-?-?-?-?-?-?-?-?-?-?- bedside us for h eart tones. pt counseled on risks of THC use in . 09/10/21 -?-?-?-?-?-?-?-?-?-?-?-?- 14w 0d 275 lb 8 oz (+8 oz) 138/82 -?-?-?-?-?-?-?-?-?-?-?-?- 150 -?-?-?-?-?-?-?-?-?-?-?-?- JV-no cramping o r bleeding. no complaints. discussed THC use again and she stopped. 10/06/21 -?-?-?-?-?-?-?-?-?-?-?-?- 17w 5d 281 lb (+6 lb) 122/80 -?-?-?-?-?-?-?-?-?-?-?-?- 150 -?-?-?-?-?-?-?-?-?-?-?-?- SM- no vb lof cr amping 11/03/21 -?-?-?-?-?-?-?-?-?-?-?-?- 21w 5d 289 lb (+14 lb) 108/80 Negative -?-?-?-?-?-?-?-?-?-?-?-?- Negative 150 22 -?-?-?-?-?-?-?-?-?-?-?-?- SM- SM- no vb lof good fm no re gular ctx discussed healthy wegiht gain, echo 12/04/21 -?-?-?-?-?-?-?-?-?-?-?-?- 26w 1d 297 lb (+22 lb) 110/70 -?-?-?-?-?-?-?-?-?-?-?-?- 145 26 -?-?-?-?-?-?-?-?-?-?-?-?- SM- no vb lof go od fm no regular ctx 12/18/21 -?-?-?-?-?-?-?-?-?-?-?-?- 28w 1d 300 lb 4 oz (+25 lb 4 oz) 116/74 Negative -?-?-?-?-?-?-?-?-?-?-?-?- Negative 153 29 -?-?-?-?-?-?-?-?-?-?-?-?- -NO VB, LOF. G ood FM. 28 wk labs, rhogam, larc. No tdap. Growth US is /3 12/31/21 -?-?-?-?-?-?-?-?-?-?-?-?- 30w 0d 303 lb (+28 lb) 128/86 Negative -?-?-?-?-?-?-?-?-?-?-?-?- Negative 154 -?-?-?-?-?-?-?-?-?-?-?-?- JV- normal GCT. growth from last week report pending from [facility]. plan for weekly nsts starting 32 weeks. 01/14/22 -?-?-?-?-?-?-?-?-?-?-?-?- 32w 0d 307 lb 8 oz (+32 lb 8 oz) 130/82 Negative -?-?-?-?-?-?-?-?-?-?-?-?- Negative 150 -?-?-?-?-?-?-?-?-?-?-?-?- JV- reactive nst but difficult to get to that point so will start bpps 01/30/22 -?-?-?-?-?-?-?-?-?-?-?-?- 34w 2d 310 lb (+35 lb) 114/80 Negative -?-?-?-?-?-?-?-?-?-?-?-?- Negative 150 36 -?-?-?-?-?-?--?-?-?-?-?-?- SM- no vb lof go od fm n oregular ctx 02/06/22 -?-?-?-?-?-?-?-?-?-?-?-?- 35w 2d 315 lb (+40 lb) 114/80 Negative -?-?-?-?-?-?-?-?-?-?-?-?- Negative 140 -?-?-?-?-?-?-?-?-?-?-?-?- JV- bpp 01/14, nst reactive, however, would like for her to return to L&D wednesday for rpt nst 02/13/22 -?-?-?-?-?-?-?-?-?-?-?-?- 36w 2d 314 lb (+39 lb) 113/84 -?-?-?-?-?-?-?-?-?-?-?-?- 150 37 Cephalic 1.5 -?-?-?-?-?-?-?-?-?-?-?-?- 60 -2 SM- n ovb lof good fm no regular ctx gbs done 02/27/22 -?-?-?-?-?-?-?-?-?-?-?-?- 38w 2d Negative -?-?-?-?-?-?-?-?-?-?-?-?- Negative 140 40 Cephalic 1 .5 -?-?-?-?-?-?-?-?-?-?-?-?- 60 -2 SM- no vb lof good fm no regular ctx discussed IOL 39 weeks Pit FB ROS Constitutional Constitutional: Denies change in weight, fatigue, fever(s), headache(s), poor appetite or weakness Eyes Eyes: Denies blurry vision, change in vision, seeing flashes or spots in vision ENT HEENT: Denies dizziness, headache(s), loss taste/smell or sore throat Cardiovascular Cardiovascular: Denies chest pain, dizziness, dyspnea, irregular heart rhythm, leg edema, palpitations, rapid heart rate or vomiting Respiratory/Chest Respiratory/Chest: Denies chest tightness, cough, dyspnea or breast pain Gastrointestinal Gastrointestinal: Denies abdominal pain, anorexia, constipation, cramping, diarrhea, hemorrhoids, vomiting or weight changes Genitourinary Genitourinary: Denies dysuria, flank pain, genital lesions, genital pain, urinary frequency or urinary urgency Musculoskeletal Musculoskeletal: Denies back pain, difficulty walking, joint pain, limited range of motion, muscle cramps or numbness Integumentary Integumentary: Denies lesions or unusual bruising Neurologic Neurologic: Denies abnormal movements, abnormal speech, dizziness, numbness, seizure-like activity or syncope Psychiatric Psychiatric: Denies anxiety, behavioral changes, change in appetite, change in libido, cognitive impairment, confusion, depression, difficulty concentrating, hallucinations or suicidal thoughts Endocrine Endocrinology: Denies excessive sweating, polydipsia or polyuria Hematologic/Lymphatic Hematologic/Lymphatic: Denies easy bleeding, easy bruising or lymphadenopathy Allergic/Immunologic Allergic/Immunologic: Denies itchy eyes, lip swelling, seasonal rhinorrhea, rhinitis, throat swelling, tongue swelling, eczemia, wheezing or asthma Vital Signs Vital Signs Vital Signs: 03/09/22 08:04 03/09/22 08:04 03/09/22 08:04 Temperature 99.9 F H Temperature Source Pulse Rate 97 Blood Pressure BP Systolic BP Diastolic Pulse Ox 94 03/09/22 08:05 03/09/22 08:05 03/09/22 08:07 Temperature Temperature Source Pulse Rate 109 H Blood Pressure 116/72 BP Systolic 116 BP Diastolic 72 Pulse Ox 94 03/09/22 08:07 03/09/22 09:30 03/09/22 09:30 Temperature Temperature Source Pulse Rate 112 H 98 Blood Pressure 122/75 H BP Systolic 122 BP Diastolic 75 Pulse Ox 03/09/22 09:30 03/09/22 09:30 03/09/22 09:31 Temperature 99.9 F H Temperature Source Oral Pulse Rate Blood Pressure BP Systolic BP Diastolic Pulse Ox 94 03/09/22 09:31 03/09/22 10:28 03/09/22 10:28 Temperature 98.6 F Temperature Source Pulse Rate 87 Blood Pressure BP Systolic BP Diastolic Pulse Ox 94 03/09/22 10:28 03/09/22 10:28 03/09/22 10:28 Temperature 99.7 F H Temperature Source Pulse Rate 88 Blood Pressure 132/77 H BP Systolic 132 BP Diastolic 77 Pulse Ox 03/09/22 10:28 03/09/22 10:28 Temperature 98.1 F Temperature Source Oral Pulse Rate Blood Pressure BP Systolic BP Diastolic Pulse Ox Weight Weight: 324 lb 4 oz Body Mass Index (BMI) 57.4 Physical Exam Const alert, oriented x3, no apparent distress and healthy appearing General Appearance: cooperative; Negative for anxious HEENT normocephalic Face and Sinus: normal facial exam Eyes EOMs intact bilaterally and no scleral icterus General Eye: normal appearance of both eyes Neck full ROM and supple Lymph Lymphatic: no lymphadenopathy noted Chest Chest: abnormal inspection of the chest Resp normal respiratory effort Effort and Inspection: able to speak in complete sentences Cardio regular rate GI soft to palpation and non-tender Inspection: gravid Palpation: soft; Negative for tender external exam normal Manual OB Exam: other cx: 1.5/70/-2, mid position, and medium consistency. A marin catheter was inserted without difficulty and inflated to 70cc NS Amniotic Fluid: ROM+plus and other Back/Spine no CVA tenderness Extremity normal to inspection, full ROM and no clubbing, cyanosis or edema General Extremity: Negative for calf tenderness or edema Skin Lesions: no lesions Rashes: no rashes Psych mental status grossly normal Labs Labs Labs: Blood Type B NEGATIVE Antibody Screen NEGATIVE Hct 40.2 % (37-47) Hgb 13.5 g/dL (12.0-15.0) Obstetrics US Syphilis Total Ab Non-reactive Rubella IgG Antibody Reactive (Nonreactive) Hep Bs Antigen Non-Reactive (Nonreactive) Chlamydia DNA (NILS) Negative (Negative) Neisseria gonorrhoeae DNA (NILS) Negative (Negative) HIV 1&2 Antibody Non-Reactive (Nonreactive) Glucose 1 Hr 50 gm 101 mg/dL (70-140) Assessment & Plan (1) : QUALIFIERS: Weeks of gestation: 38 weeks Qualified Code(s): Z3A.38 - 38 weeks gestation of COMMENT: GBS Negative, anatomy nl, declined genetic and carrier ntd screening. (2) Supervision of normal : COMMENT: PRR ENEDELIA: [birth year] girl Chava BF: Beto (3) H/O congenital anomaly of heart: COMMENT: echo scheduled. Older sister (dec @ 3months if age aortic stenosis); patient's mother had hole in heart no surgery; BF and BF brother born with heart murmur. NL growth US with MFM on 12/11 (4) Marijuana abuse: COMMENT: + tox at [facility]- needs random tox. 12/18 neg (5) Obesity affecting : COMMENT: NL GCT at [facility]. encourage healhty weight gain. BMI 54 plan weekly nsts after 32. (6) Rh negative state in antepartum period: COMMENT: rhogam 28 wk, prn and pp (7) Polyhydramnios affecting in third trimester: COMMENT: weekly BPP at [facility] and recommend IOL 39-40. (8) Encounter for induction of labor: COMMENT: plan 03/05 7am Pit FB IOL for polyhydramnios. (9) Lab test positive for detection of COVID-19 virus: COMMENT: 81mg asa, 32 & 36 wk growth US, 01/09 nl growth (10) Anxiety and depression: COMMENT: h/o while in school, no meds encouraged counseling. PLAN: Plan Patient presents IOL, plan management for with marin/pitocin/AROM. Pain management: plans epidural. GBS negative. Management of any complications: obesity, polyhdyramnios I have reviewed the [facility] and made any clinically relevant updates.
[2022-03-09] MEDS: fentaNYL 100 MCG/2 ML Ampul IV (11:54)
[2022-03-09] MEDS: LACTATED RINGERS 500 ML 999 ML IV ×3 (13:35→23:45)
[2022-03-09] MEDS: fentaNYL-bupivacaine (epidural) 100 ML BAG EPIDURAL ×3 (14:37→23:44)
--- NOTE | 2022-03-09 15:03 | PCM.PN.BLA ---
Progress Note pt is now comfortable with epidural and marin is out. She consents to arom and internal monitor placements current tracing: FHT: 150 Moderate variability reactive no decelerations category I tracing [place]: q 2-3 Contractions cx: 6/80/-1, clear fluid with blood tinge IUPC placed and dark red blood filled the catheter. it was replaced then flushed and now clear. IFM placed without difficulty A/P: polyhydramnios iol at 39 weeks -internal monitors in now. continue pitocin anticipate this evening
[2022-03-09] MEDS: Lactated Ringers 1,000 ML 200 ML IV ×2 (16:43→21:45)
[2022-03-09] MEDS: Mag Hydrox/Al Hydrox/Simeth 30 ML UDC PO (19:23)
[2022-03-09] MEDS: Acetaminophen 500 MG Tablet PO (23:44)
[2022-03-10] VITALS (32 sets, daily range): BP systolic 95–135; BP diastolic 51–87; PULSE 88–120; RESP 16–18; TEMP 36.1–39.2; O2SAT 96–99
[2022-03-10] MEDS: Lactated Ringers 1,000 ML 200 ML IV (01:25)
[2022-03-10] MEDS: Mag Hydrox/Al Hydrox/Simeth 30 ML UDC PO (03:43)
[2022-03-10] MEDS: Acetaminophen 500 MG Tablet PO (06:28)
[2022-03-10] MEDS: Oxytocin 30 units/NS 500 ml 30 UNITS/500 ML IV.SOLN 334 UNITS IV (07:47)
[2022-03-10] MEDS: Methylergonovine 0.2 MG/ML Ampul IM (07:47)
[2022-03-10] MEDS: Carboprost Tromethamine 250 MCG/ML Ampul IM (07:51)
[2022-03-10] MEDS: miSOPROStol 200 MCG Tablet 1000 MCG RC (07:51)
[2022-03-10] MEDS: 0.9% Saline Lock 10 ML Syringe IV ×3 (08:30→13:33)
--- NOTE | 2022-03-10 08:30 | EX.PCM.OBRPT ---
Assessment & Plan (1) : QUALIFIERS: Weeks of gestation: 38 weeks Qualified Code(s): Z3A.38 - 38 weeks gestation of COMMENT: GBS Negative, anatomy nl, declined genetic and carrier ntd screening. (2) Supervision of normal : COMMENT: PRR ENEDELIA: 03/[birth year] girl Chava BF: Beto (3) Marijuana abuse: COMMENT: + tox at [facility]- needs random tox. 12/18 neg (4) Obesity affecting : COMMENT: NL GCT at [facility]. encourage healhty weight gain. BMI 54 plan weekly nsts after 32. (5) H/O congenital anomaly of heart: COMMENT: echo scheduled. Older sister (dec @ 3months if age aortic stenosis); patient's mother had hole in heart no surgery; BF and BF brother born with heart murmur. NL growth US with MFM on 12/11 (6) Rh negative state in antepartum period: COMMENT: rhogam 28 wk, prn and pp (7) Polyhydramnios affecting in third trimester: COMMENT: weekly BPP at [facility] and recommend IOL 39-40. (8) Encounter for induction of labor: COMMENT: plan 03/05 7am Pit FB IOL for polyhydramnios. (9) Lab test positive for detection of COVID-19 virus: COMMENT: 81mg asa, 32 & 36 wk growth US, 6/3 nl growth (10) Anxiety and depression: COMMENT: h/o while in school, no meds encouraged counseling. Maternal Data Information ENEDELIA Calculator Estimated Delivery Date Method Current WG Current Estimate 03/11/22 Ultrasound #1 39w 6d Other Estimates 03/01/22 LMP (Certain) 41w 2d Final ENEDELIA: 03/11/22 Final ENEDELIA Source: LMP Gestational age: 39 weeks 6 days Vaginal Delivery Maternal Presentation Maternal Presentation: Medically Indicated Induction Type of Induction: Pitocin, Salazar Bulb and Amniotomy Operative Information Date of Procedure: 03/10/22 Pre-Operative Diagnosis: @ 39 weeks 6 days, polyhydramnios, maternal exhaustion in labor Post-Operative Diagnosis: @ 39 weeks 6 days, polyhydramnios, maternal exhaustion in labor, hemorrhage Surgery / Procedure Performed: Vacuum Assisted Vaginal Delivery Type of Anesthesia: Epidural Drain: Salazar to straight drain Estimated Blood Loss: 1000cc Findings Description of Procedure: Patient began pushing and developed a temperature of 100.2. She consented to trial of vacuum extraction. The station was noted to be at a +3 station. The kiwi vacuum was applied to the head and pulled with 2 contractions with minimal descent. The second pull was a pop off and the decision was made for the patient to push more. She pushed for another hour and delivered the head in the BRAD presentation. The head was delivered atraumatically . The anterior and posterior shoulders delivered without complication followed by the rest of the infant and the was placed on the maternal abdomen. Delayed cord clamping was employed for approximately 60 seconds. Cord was clamped and cut and gentle traction was applied to the cord and the placenta delivered spontaneously immediately following it was noted to be intact with three-vessel cord. The perineum and vagina were inspected and noted to have a 1st degree perineal laceration and a left sidewall tear She started bleeding briskly and fundal massage was performed followed by methergine and hemobate then cytotec administration. The bleeding stopped then after all measures were taken. EBL was 1000cc. Patient and tolerated delivery well. Presentation: Vertex Amniotic Membrane Rupture Type: Artificial Amniotic Fluid Description: Clear Placental Delivery Description: Spontaneous Placenta Disposition: [facility] Cord Vessel Description: 3 Vessels Cord Entanglement: None A Gender: Female (1 minute): 8 (5 minute): 9 Delayed Cord Clamping: Yes Post Vaginal Delivery Medications Given After Delivery: IV Pitocin, IM Methergin and IM Hemabate Episiotomy Description: None Laceration: 1st degree Complication Complications: None Multi Select Codes Urinary/Genital Urinary/Genital CPT Codes: 07594 Vaginal Delivery+ Care([facility])
[2022-03-10] MEDS: Cefazolin 2 GM in 0.9% Normal Saline 100 ML IV (12:41)
[2022-03-10] MEDS: Ibuprofen 600 MG Tablet PO ×2 (16:18→23:55)
[2022-03-11 04:00] VITALS: BP 118/65; PULSE 109; RESP 18; TEMP 36.2; O2SAT 96
[2022-03-11 05:58] LABS: Hematocrit 30.7 % (37-47); Mean Corp Hgb Conc 32.6 g/dL (32-36); Mean Corpuscular Hgb 28.5 pg (27.0-32.0); Mean Corpuscular Volume 87.5 fL (81-99); Mean Platelet Vol. 8.5 fl (6.2-12.0); Platelet Count 166 K/mm3 (150-450); RBC Distribution Width CV 12.4 % (11.6-14.6); RBC Distribution Width SD 39.6 fl (35.1-43.9); Red Blood Count 3.51 M/mm3 (4.2-5.4)
--- NOTE | 2022-03-11 08:08 | PCM.PN.OB ---
Subjective Subjective Patient doing well without complaints. Tolerating PO. Ambulating and voiding without difficulty. Feeding well. Denies chest pain, shortness of breath, calf pain/swelling, fevers, chills, lightheadedness. Objective Data Objective Data Vital Signs: Vital Signs Temp Pulse Resp BP Pulse Ox O2 Del Method 97.1 F L 109 H 18 118/65 96 Room Air 03/11/22 04:00 03/11/22 04:00 03/11/22 04:00 03/11/22 04:00 03/11/22 04:00 03/11/22 04:00 Oxygen Delivery Method Room Air Weight: 324 lb 4 oz Body Mass Index (BMI) 57.4 Intake & Output: Intake and Output for Last 24 Hours 03/09/22 03/10/22 03/11/22 23:59 23:59 23:59 Intake Total 2883.73 / 2883.73 2942.53 / 2942.53 Output Total 1350 / 1350 2100 / 2100 Balance 1533.73 / 1533.73 842.53 / 842.53 Lab / Micro Data Result Diagrams: 03/11/22 05:50 Labs: Laboratory Results - last 24 hr 03/11/22 05:50: WBC 19.0 H, RBC 3.51 L, Hgb 10.0 L, Hct 30.7 L, MCV 87.5, MCH 28.5, MCHC 32.6, RDW Std Deviation 39.6, RDW Coeff of Aye 12.4, Plt Count 166, MPV 8.5 Micro: Microbiology 03/09/22 07:50 Nasal Secretion SARS-CoV-2 Antigen (Rapid) - Final Physical Exam Const alert and oriented x3 General Appearance: cooperative HEENT normocephalic Eyes PERRL Neck full ROM Resp normal respiratory effort GI soft to palpation GI Narrative: FF below U Assessment & Plan (1) Spontaneous vaginal delivery: (2) Rh negative state in antepartum period: COMMENT: rhogam 28 wk, prn and pp PLAN: Plan s/p PPD # 1 1. routine post delivery care 2. breast feeding- support given 3. rh negative 4. rubella immune
[2022-03-11 08:40] VITALS: BP 118/73; PULSE 82; RESP 16; TEMP 36.2
[2022-03-11] MEDS: Ibuprofen 600 MG Tablet PO ×2 (10:10→20:19)
[2022-03-11 13:48] VITALS: BP 98/65; PULSE 88; RESP 18; TEMP 36.4
[2022-03-11 20:14] VITALS: BP 109/55; PULSE 110; RESP 18; TEMP 36.5
[2022-03-12 03:00] VITALS: BP 96/57; PULSE 75; RESP 20
[2022-03-12 07:45] VITALS: BP 97/61; PULSE 94; RESP 18; TEMP 36.3
[2022-03-12] MEDS: Ibuprofen 600 MG Tablet PO (07:56)
--- NOTE | 2022-03-12 07:56 | PCM.PN.OB ---
Subjective Subjective Patient doing well without complaints. Tolerating PO. Ambulating and voiding without difficulty. Feeding well. Denies chest pain, shortness of breath, calf pain/swelling, fevers, chills, lightheadedness. Objective Data Objective Data Vital Signs: Vital Signs Temp Pulse Resp BP Pulse Ox O2 Del Method 97.3 F L 94 18 97/61 96 Room Air 03/12/22 07:45 03/12/22 07:45 03/12/22 07:45 03/12/22 07:45 03/11/22 04:00 03/12/22 07:45 Oxygen Delivery Method Room Air Weight: 324 lb 4 oz Body Mass Index (BMI) 57.4 Intake & Output: Intake and Output for Last 24 Hours 03/10/22 03/11/22 03/12/22 23:59 23:59 23:59 Intake Total 2942.53 / 2942.53 Output Total 2100 / 2100 Balance 842.53 / 842.53 Lab / Micro Data Result Diagrams: 03/11/22 05:50 Micro: Microbiology 03/09/22 07:50 Nasal Secretion SARS-CoV-2 Antigen (Rapid) - Final ROS Constitutional Constitutional: Denies chills, fatigue, fever(s), poor appetite or weakness Eyes Eyes: Denies blurry vision, change in vision, seeing flashes or spots in vision ENT HEENT: Denies dizziness, headache(s), loss taste/smell or sore throat Cardiovascular Cardiovascular: Denies chest pain, dizziness, dyspnea, irregular heart rhythm, palpitations or rapid heart rate Respiratory/Chest Respiratory/Chest: Denies chest tightness, cough, dyspnea or breast pain Gastrointestinal Gastrointestinal: Denies abdominal pain, constipation or vomiting Genitourinary Genitourinary: Denies dysuria or flank pain Musculoskeletal Musculoskeletal: Denies difficulty walking, joint pain, limited range of motion or numbness Neurologic Neurologic: Denies abnormal movements, abnormal speech, dizziness, numbness, seizure-like activity or syncope Psychiatric Psychiatric: Denies anxiety, behavioral changes, change in appetite, confusion, depression or suicidal thoughts Physical Exam Const alert, oriented x3 and no apparent distress General Appearance: cooperative and comfortable Resp normal respiratory effort Cardio regular rate GI normal to inspection, nondistended, normoactive bowel sounds GI Narrative: uterus is firm below umbilicus Palpation: soft Back/Spine no CVA tenderness and thoraco-lumbar ROM normal Extremity normal to inspection, no clubbing, cyanosis or edema, no calf tenderness and no pedal edema Psych mental status grossly normal, thought process normal, cooperative, affect normal, speech normal, activity/motor behavior normal, denies homicidal ideation and denies suicidal ideation Assessment & Plan (1) Spontaneous vaginal delivery: PLAN: s/p PPD # 2 1. routine post delivery care 2. breast feeding- support given 3. rh positive 4. rubella immune 5. dc to home today
--- NOTE | 2022-03-12 10:24 | NURSING ---
Reviewed and agreed with charting by Rito ARIZMENDI.
== END 2022-03-12 10:20 | disposition home or self-care (01) | DRG 560 ==
PROVIDERS: Admitting Provider Obstetrics & Gynecology; Referring Provider Obstetrics & Gynecology; Visit Provider Obstetrics & Gynecology
DX: O40.3XX0 Polyhydramnios, third trimester, not applicable or unspecified (principal); Z37.0 Single live birth; O72.1 Other immediate postpartum hemorrhage; F41.9 Anxiety disorder, unspecified; F12.10 Cannabis abuse, uncomplicated; O99.324 Drug use complicating childbirth; O99.344 Other mental disorders complicating childbirth; F32.A Depression, unspecified; O99.214 Obesity complicating childbirth; Z28.310 Unvaccinated for COVID-19; Z3A.39 39 weeks gestation of pregnancy; Z86.16 Personal history of COVID-19; Z87.891 Personal history of nicotine dependence; Z28.39 Other underimmunization status; Z87.74 Personal history of (corrected) congenital malformations of heart and circulatory system; O70.0 First degree perineal laceration during delivery
CPT/HCPCS: 59025; 59050; 76819; 80307; 85025; 85027; 86850; 86900; 86901; 87426; 99218; J7120; A4216; G0378

== ENCOUNTER → 2023-08-10 | Outpatient (CLI) | payer MEDICAID, SELFPAY ==
[2023-08-10 17:35] LABS: hCG Titer Quant., Serum 67258 mIU/mL (1-3)
== END | disposition home or self-care (01) ==
PROVIDERS: Referring Provider Nurse Practitioner Women's Health; Visit Provider Nurse Practitioner Women's Health
DX: N91.2 Amenorrhea, unspecified (principal)
CPT/HCPCS: 36415; 84702

== ENCOUNTER → 2023-08-12 | Outpatient (CLI) | payer MEDICAID, SELFPAY ==
--- NOTE | 2023-08-12 16:22 | US_ITS ---
STUDY: FIRST TRIMESTER OBSTETRICAL ULTRASOUND (TWINS) REASON FOR EXAM: Female, 23 years old. LMP: dating - pt unsure of LMP TECHNIQUE: Transabdominal TECHNICAL QUALITY: Adequate. COMPARISON: None. FINDINGS: There are two demonstrated intrauterine gestational sacs. There is a single identified placenta, without a ?twin peak? sign, indicating a probable monochorionic . The amniotic membrane cannot be visualized. The estimated gestation age (EGA) by LMP is unknown. The estimated date of delivery (ENEDELIA) by LMP: Unknown. BABY A The mean sac diameter (MSD) measure 5.2 mm, indicating an estimated gestational age (EGA) of 11 weeks, 0 days. There is a visualized yolk sac. The yolk sac measures 4.0 mm. There is visualization of an embryo. The crown-rump length (CRL) measures 3.29 mm, indicating an estimated gestational age (EGA) of 9 weeks, 6 days. The estimated gestation age (EGA) by US is 10 weeks, 3 days. The estimated date of delivery (ENEDELIA) by US is 03/06/2024. There is demonstrated cardiac activity with a heart rate 174 bpm. BABY B The mean sac diameter (MSD) measure 5.2 mm, indicating an estimated gestational age (EGA) of 11 weeks, 0 days. There is a visualized yolk sac. The yolk sac measures 4.0 mm. There is visualization of an embryo. The crown-rump length (CRL) measures 3.0 mm, indicating an estimated gestational age (EGA) of 9 weeks, 4 days. The estimated gestation age (EGA) by US is 10 weeks, 2 days. The estimated date of delivery (ENEDELIA) by US is 03/06 2024. There is demonstrated cardiac activity with a heart rate 171 bpm. MATERNAL ANATOMY The uterus measures 11.8 x 6.9 x 6.8 cm cm. There is no demonstrated uterine fibroid. The cervix is closed. Bilateral ovaries are not visualized. There is no fluid in the cul de sac. US/Transvaginal w/Preg US IMPRESSION: Normal intrauterine twin with ultrasound estimated date of delivery of 03/06/2024. Normal cardiac activities as described above. Electronically Signed: Mercedez Jefferson MD at 23:59 EST ,
--- OUTSIDE RECORDS SUMMARY | 2023-08-12 18:40 | XMS RPT_ITS | CCD ---
Author Name Unknown Address [address] [place] [address] Organization [facility] Care Team Providers Care Rocket Motor Tester Name Role Phone SCHWIGER, HESHAM Unavailable Unavailable SCHWIGER, HESHAM Unavailable Unavailable NO REFERRING Unavailable Unavailable MIRACLE SALGUERO Unavailable Unavailable MIRACLE SALGUERO Unavailable Unavailable NO REFERRING Unavailable Unavailable HESHAM MÉNDEZ Unavailable Unavailable HESHAM MÉNDEZ Unavailable Unavailable MIRACLE SALGUERO Unavailable Unavailab MIRACLE Malik Unavailable Unavailab Humza Sweeney MD Primary Care Provider Humza Mena MD Unavailable Humza Mena MD Primary Care Provider Humza Mena MD Unavailable [phone] HUMZA MENA Primary Care Unavailable Allergies Allergy Classification Reported Allergen(s) Allergy Type Date of Onset Reaction(s) Facility (6 sources) BEE STING; Translations: [BEE STING] Propensity to adverse reactions (disorder) 6 Swelling [facility] Repository (6 sources) TETANUS VACCINES AND TOXOID; Translations: [TETANUS VACCINES AND TOXOID] Propensity to adverse reactions to drug (disorder) 2 Other: See Comments [facility] Repository (2 sources) VACCINE ADJUVANT EMULSION COMBINATION NO. 1; Translations: [VACCINE ADJUVANT EMULSION COMBINATION NO. 1] Propensity to adverse reactions to drug (disorder) 6 AOF [facility] Repository (4 sources) Vaccine Adjuvant Emulsion As03; Translations: [VACCINE ADJUVANT EMULSION AS03] Drug Allergy 6 Swelling [facility] (2 sources) Bee pollen; Translations: [BEE POLLEN] Drug Allergy 1 Hives [facility] Medications Current Medications Medication Drug Class(es) Dates Sig (Normalized) Sig (Original) amoxicillin 875 mg / clavulanate 125 mg oral tablet (1 source) Penicillin-class Antibacterial Start: 03-31-2022 End: 04-07-2022 take 1 tablet by mouth twice daily amoxicillin-clav ulanic acid (AUGMENTIN) 875-125 mg per tablet Take 1 tablet by mouth twice daily for 7 days. 14 tablet 0 03/31/2022 04/07/2022 Active Completed/Discontinued Medications Medication Drug Class(es) Dates Sig (Normalized) Sig (Original) amoxicillin 875 mg oral tablet (2 sources) Penicillin-class Antibacterial Start: 03-29-2022 End: 04-05-2022 take 1 tablet by mouth twice daily amoxicillin (AMOXIL) 875 mg tablet Take 1 tablet by mouth twice daily for 7 days. 14 tablet 0 03/29/2022 03/31/2022 Discontinued (Course of therapy completed) Problems Active Problems Problem Classification Problem Date Documented Date Episodic/Chronic Nutritional deficiencies (3 sources) Vitamin D deficiency; Translations: [Vitamin D deficiency, unspecified] Onset: 09-15-2016 09-15-2016 Chronic Other ear and sense organ disorders (2 sources) Unspecified otitis externa, bilateral; Translations: [Unspecified otitis externa, left ear] Onset: 03-02-2017 Chronic Other ear and sense organ disorders (1 source) Acute otitis externa of left ear; Translations: [Unspecified acute noninfective otitis externa, left ear] Episodic Other ear and sense organ disorders (1 source) Acute otitis externa of right ear; Translations: [Unspecified acute noninfective otitis externa, right ear] Episodic Other nutritional; endocrine; and metabolic disorders (3 sources) Obesity; Translations: [Obesity, unspecified] Onset: 05-18-2012 05-18-2012 Chronic Other upper respiratory infections (1 source) Acute upper respiratory infection; Translations: [Acute upper respiratory infection, unspecified] Episodic Otitis media and related conditions (3 sources) Other acute nonsuppurative otitis media, bilateral; Translations: [Acute suppurative otitis media of left ear] Onset: 03-04-2017 Episodic Substance-related disorders (1 source) Nicotine dependence, cigarettes, uncomplicated; Translations: [NICOTINE DEPEND CIGARETT] Onset: 03-04-2017 Chronic Past or Other Problems Problem Classification Problem Date Documented Da te Episodic/Chronic Diabetes mellitus without complication (3 sources) Prediabetes; Translations: [Prediabetes] Onset: 08-27-2016 08-27-2016 Episodic Other aftercare (1 source) Other skilled nursing (current) drug therapy; Translations: [OTH CUSTODIAL CURRENT DR] Onset: 03-04-2017 Episodic Other ear and sense organ disorders (5 sources) Otalgia, bilateral; Translations: [Impacted cerumen, left ear] Onset: 03-02-2017 Episodic Results Test Name Value Interpretation Reference Range Facil ity Vital Signs Date Time Vital Sign Value Performing Clinician Mela amezcua 07-23-2022 15:23-0500 Body temperature 97.9 [degF] Felipe Mcdonald RUSSIAN RUBBER.MEDICAL EDUCATION COORDINATOR Work Phone: [facility] 07-23-2022 15:23-0500 Body weight 138.71 kg Felipe Mcdonald RUSSIAN RUBBER.MEDICAL EDUCATION COORDINATOR Work Phone: [facility] 07-23-2022 15:23-0500 Diastolic blood pressure 68 mm[Hg] Felipe Mcdonald RUSSIAN RUBBER.MEDICAL EDUCATION COORDINATOR Work Phone: [facility] 07-23-2022 15:23-0500 Heart rate 99 /min Felipe Mcdonald RUSSIAN RUBBER.MEDICAL EDUCATION COORDINATOR Work Phone: [facility] 07-23-2022 15:23-0500 SaO2% (BldA) [Mass fraction] 99 % Felipe Mcdonald RUSSIAN RUBBER.MEDICAL EDUCATION COORDINATOR Work Phone: [facility] 07-23-2022 15:23-0500 Systolic blood pressure 122 mm[Hg] Felipe Mcdonald RUSSIAN RUBBER.MEDICAL EDUCATION COORDINATOR Work Phone: [facility] 03-31-2022 16:13-0400 Body temperature 99.1 [degF] Rafa Garcia RUSSIAN RUBBER.MEDICAL EDUCATION COORDINATOR Work Phone: [facility] 03-31-2022 16:13-0400 Body weight 135.81 kg Rafa Garcia RUSSIAN RUBBER.MEDICAL EDUCATION COORDINATOR Work Phone: [facility] 03-31-2022 16:13-0400 Diastolic blood pressure 72 mm[Hg] Rafa Garcia RUSSIAN RUBBER.MEDICAL EDUCATION COORDINATOR Work Phone: [facility] 03-31-2022 16:13-0400 Heart rate 81 /min Rafa Pendlebury RUSSIAN RUBBER.MEDICAL EDUCATION COORDINATOR Work Phone: [facility] 03-31-2022 16:13-0400 Respiratory rate 18 /min Rafa Pendlebury RUSSIAN RUBBER.MEDICAL EDUCATION COORDINATOR Work Phone: [facility] 03-31-2022 16:13-0400 SaO2% (BldA) [Mass fraction] 98 % Rafa Pendlebury RUSSIAN RUBBER.MEDICAL EDUCATION COORDINATOR Work Phone: [facility] 03-31-2022 16:13-0400 Systolic blood pressure 128 mm[Hg] Rafa Pendlebury RUSSIAN RUBBER.MEDICAL EDUCATION COORDINATOR Work Phone: [facility] 03-29-2022 09:25-0400 Body temperature 98.2 [degF] Grace Myah RUSSIAN RUBBER.MEDICAL EDUCATION COORDINATOR Work Phone: [facility] 03-29-2022 09:25-0400 Body weight 136.81 kg Grace Myah RUSSIAN RUBBER.MEDICAL EDUCATION COORDINATOR Work Phone: [facility] 03-29-2022 09:25-0400 Diastolic blood pressure 80 mm[Hg] Grace Myah RUSSIAN RUBBER.MEDICAL EDUCATION COORDINATOR Work Phone: [facility] 03-29-2022 09:25-0400 Heart rate 97 /min Grace Myah RUSSIAN RUBBER.MEDICAL EDUCATION COORDINATOR Work Phone: [facility] 03-29-2022 09:25-0400 Respiratory rate 20 /min Grace Myah RUSSIAN RUBBER.MEDICAL EDUCATION COORDINATOR Work Phone: [facility] 03-29-2022 09:25-0400 SaO2% (BldA) [Mass fraction] 99 % Grace Myah RUSSIAN RUBBER.MEDICAL EDUCATION COORDINATOR Work Phone: [facility] 03-29-2022 09:25-0400 Systolic blood pressure 110 mm[Hg] Grace Myah RUSSIAN RUBBER.MEDICAL EDUCATION COORDINATOR Work Phone: [facility] Encounters Encounter Date Encounter Type Care Provider Facility Start: 07-22-2023 End: 07-22-2023 [facility] Facility:[facility] Start: 07-23-2022 End: 07-23-2022 Patient encounter procedure Felipe Mcdonald KIERAN.KIMBERLY Work Phone: [facility] Procedures Date Procedure Procedure Detail Performing Clinician Start: 09-11-2020 Adult depression screening assessment Grace Yuanena ROSADO Work Phone: Plan of Treatment Date Care Activity Detail Author Start: 05-18-2022 Urine microalbumin profile DTAP,TDAP,TD (6 - Td or Tdap) [facility] Start: 04-09-2022 Influenza vaccination INFLUENZA (#1) [facility] Start: 09-11-2021 Adult depression screening assessment DEPRESSION SCREENING [facility] Start: 08-09-2021 DEPRESSION ASSESSMENT DEPRESSION ASSESSMENT [facility] Start: 2019 PAP TESTING PAP TESTING [facility] Start: 2016 CHLAMYDIA SCREENING (18-24) CHLAMYDIA SCREENING (18-24) [facility] Start: 2016 GC (GONORRHEA) SCREENING (18-24) GC (GONORRHEA) SCREENING (18-24) [facility] Start: 2016 HEPATITIS C SCREENING HEPATITIS C SCREENING [facility] Start: 2016 HIV SCREENING HIV SCREENING [facility] Start: 11-16-2012 HPV VACCINE (2 - 2-dose series) HPV VACCINE (2 - 2-dose series) [facility] Start: 2012 PEDS TO ADULT TRANSITION ANNUAL ASSESSMENT PEDS TO ADULT TRANSITION ANNUAL ASSESSMENT [facility] Start: 2010 PEDS TO ADULT TRANSITION INITIAL DISCUSSION PEDS TO ADULT TRANSITION INITIAL DISCUSSION [facility] Start: 2008 MENINGOCOCCAL B: Consider based on risk (1 of 2 - Risk Bexsero 2-dose series) MENINGOCOCCAL B: Consider based on risk (1 of 2 - Risk Bexsero 2-dose series) [facility] Start: 2004 PNEUMOCOCCAL (1 - PCV) PNEUMOCOCCAL (1 - PCV) [facility] Start: 1998 COVID-19 VACCINE (#1) COVID-19 VACCINE (#1) [facility] Influenza virus A an d B RNA and SARS-CoV-2 (COVID-19) N gene panel - Respiratory specimen by NILS with probe detection COVID WITH FLUA+B, ROUTINE Microbiology Routine URI, acute 07/23/2022 4:20 PM EST [facility] Work Phone: Immunizations Immunization Date Immunization Notes Care Provider Morenita zapata 05-18-2012 human papilloma viru s vaccine, quadrivalent Grace Glasgow APRN.MEDICAL EDUCATION COORDINATOR Work Phone: [facility] 05-18-2012 Meningococcal, MCV4, unspecified conjugate formulation(groups A, C, Y and W-135) Grace Glasgow APRN.MEDICAL EDUCATION COORDINATOR Work Phone: [facility] 05-18-2012 tetanus toxoid, redu triny diphtheria toxoid, and acellular pertussis vaccine, adsorbed Gracedavid Glasgow RUSSIAN RUBBER.MEDICAL EDUCATION COORDINATOR Work Phone: [facility] 12-02-2005 diphtheria, tetanus toxoids and acellular pertussis vaccine Grace Glasgow RUSSIAN RUBBER.MEDICAL EDUCATION COORDINATOR Work Phone: [facility] 12-02-2005 poliovirus vaccine, inactivated Grace Glasgow APRN.MEDICAL EDUCATION COORDINATOR Work Phone: [facility] Payers Date Payer Category Payer Medicaid [id number] 2022 Medicaid [id number] Unknown [id number] Social History Date Type Detail Facility Start: [facility]-29-[facility] Start: 03-29-2022 Tobacco use and exposure Smoke less tobacco non-user [facility] Start: 1998 Sex Assigned At Not on file C [facility] Start: 03-21-2022 End: 03-31-2022 Exposure to SARS-CoV-2 (event) Not sure [facility] Start: 07-23-2022 [facility] Start: 07-23-2022 Tobacco use and exposure User of smo keless tobacco [facility] Start: 07-23-2022 Alcohol intake Lifetime non-d gayle (finding) [facility] Start: 07-23-2022 Tobacco Comment [facility] Progress note 07-22-2023 Note Date & Type Note Facility 07-22-2023 Note HNO ID: [id number] Author: Miguel Draper MD Service: ? Author Type: Physician Type: Progress Notes Filed: 07/22/2023 7:02 PM Note Text: Patient presents with: Nausea AND Vomiting: Nausea, vomiting and fatigue x 4 days HPI: Feeling nausea for 4 days. Vomiting today. Positive symptoms: Fatigue, Nausea, Vomiting, little diarrhea, Headache, dizziness, some body aches Negative symptoms: Cough, Sore throat, Nasal Congestion, Rhinorrhea, Fever, blood in emesis, abdominal pain, dysuria, frequency, urgency OTC: none. LMP was around May this year, maybe June. Not using contraceptive. MEDICATIONS: Current Outpatient Medications Medication Sig epinephrine (EPIPEN INJECTION) Inject intramuscularly. (Patient not taking: Reported on 07/23/2022) No current facility-administered medications for this visit. ALLERGIES: ALLERGIES Allergen Reactions Bee Pollen Hives Bee Sting Swelling Tetanus Vaccines An* Other: See Comments PT GOT SWELLING REALLY BAD Vaccine Adjuvant Em* Swelling TDAP vaccine VITALS: BP 122/78 Pulse 76 Temp 37 ?C (98.6 ?F) (Tympanic) Resp 18 Wt 132.2 kg (291 lb 6.4 oz) LMP 07/01/2022 SpO2 98% PHYSICAL EXAM: GEN: mildly ill appearing HEENT: PERRL, EOMI, conjunctiva clear Ears: canals clear. TMs without erythema, bulge, or effusion Sinuses: non-tender frontal sinus, non-tender maxillary sinuses Throat: moist mucous membranes, no erythema, no exudate Neck: supple, no thyromegaly, no lymphadenopathy HEART: regular rate and rhythm, no murmurs LUNGS: clear to auscultation, no wheezes or crackles, no increased WOB ABD: Soft, non-distended, suprapubic discomfort - otherwise non-tender, no masses ASSESSMENT/PLAN: 1. , unspecified gestational age - ICD9: V22.2, ICD10: Z34.90 (primary diagnosis) 2. Nausea and vomiting, unspecified vomiting type - ICD9: 787.01, ICD10: R11.2 3. Fatigue, unspecified type - ICD9: 780.79, ICD10: R53.83 4. Amenorrhea - ICD9: 626.0, ICD10: N91.2 - HCG QUAL UR B/O - positive. Unsure conception date, probably 1-2 months. - VITAMIN 27 MG IRON-0.8 MG TABLET Schedule follow up with OB - COVID AND INFLUENZA A/B NAAT, ROUTINE Miguel Draper MD [facility] Instructions 07-23-2022 Patient Instructions Note Date & Type Note Facility 07-23-2022 Instructions Felipe Mcdonald APRN.MEDICAL EDUCATION COORDINATOR - 07/23/2022 3:39 PM EST RESPIRATORY INFECTION GENERAL INFORMATION: An upper respiratory tract infection, or cold, is a viral infection of the airway passages. It can be caused by any one of almost 200 different viruses. Common symptoms include a runny or stuffy nose, sneezing, watery eyes, sore throat, cough, and slight fever. Colds are contagious, especially during the first 3 or 4 days and cannot be cured by antibiotics. They are spread by coughs, sneezes, and direct contact, especially [id number]. A respiratory tract infection usually clears up in a few days, but some people may be sick for a week or two. INSTRUCTIONS: 1. Be careful not to blow your nose too hard because this may cause a nosebleed. 2. Use a cool-mist humidifier (vaporizer) to increase air moisture. This will make it easier for you to breathe. Do not use hot steam. 3. Rest as much as possible and get plenty of sleep. 4. Wash your hands often, especially after you blow your nose. Cover your mouth and nose with a tissue when you sneeze or cough. 5. Drink plenty of clear fluids (8 glasses a day) such as water, fruit juice, tea, clear soups, and carbonated beverages. CONTACT YOUR DOCTOR IF : 1. Your fever lasts more than 3 days. 2. You have a sore throat that gets worse or you see white or yellow spots in your throat. 3. Your cough gets worse or lasts more than 10 days. 4. You develop a rash anywhere on your skin. 5. You have an earache or a headache. 6. You have thick greenish or yellowish discharge from your nose. RETURN IMMEDIATELY IF: 1. You cough up thick yellow, green, calloway, or bloody sputum. 2. You have difficulty breathing, pain in your chest, or your skin or nails look calloway or blue. 3. You have shaking chills or a temperature over 102 F (39 C). documented in this encounter [facility] History of Present illness Narrative 07-23-2022 Felipe Mcdonald APRN.KIMBERLY - 07/23/2022 3:36 PM EST Note Date & Type Note Facility 07-23-2022 History of Presen t illness Narrative Subjective HPI HPI Narayan Montanez is a 22 year old female who presents today for CC of cough, fever, scratchy throat. This started 2 days ago. Has tried otc mediation for relief. Symptoms are worsened by nothing. Risk factors no known sick exposures. Denies possibility of being . .Patient presents with: Headache: Nasal congestion, throat pain x1 day. PAST MEDICAL HISTORY Diagnosis Date Intractable migraine without aura and without status migrainosus ALLERGIES Bee Pollen, Bee Sting, Tetanus Vaccines And Toxoid, and Vaccine Adjuvant Emulsion As03 MEDICATIONS epinephrine (EPIPEN INJECTION) Inject intramuscularly. (Patient not taking: Reported on 07/23/2022) SUMAtriptan (IMITREX) 100 mg tablet Take 1 tablet by mouth as needed. at onset of headache. May repeat after 2 hours. (Patient not taking: Reported on 03/29/2022) rimegepant (NURTEC ODT) 75 mg ODT Take 1 tablet by mouth as needed (for migriane pain. Max dose is 1 tab in 24 hrs.). (Patient not taking: Reported on 03/29/2022) cholecalciferol (VITAMIN D3) 5,000 unit tab Take 1 tablet by mouth once daily. (Patient not taking: Reported on 03/29/2022) No family history on file. Social History Tobacco Use Smoking status: Never Smokeless tobacco: Current Tobacco comments: VAPE Substance Use Topics Alcohol use: Never Drug use: Never Review of Systems Constitutional: Positive for fever. HENT: Positive for congestion and sore throat. Negative for ear pain and nosebleeds. Respiratory: Positive for cough. Negative for shortness of breath and wheezing. Cardiovascular: Negative for chest pain. Gastrointestinal: Negative for diarrhea and vomiting. Musculoskeletal: Negative for neck pain. Skin: Negative for itching and rash. Neurological: Positive for headaches. Objective Blood pressure 122/68, pulse 99, temperature 36.6 C (97.9 F), temperature source Tympanic, weight (!) 138.7 kg (305 lb 12.8 oz), last menstrual period 07/01/2022, SpO2 99 %. Physical Exam Constitutional: General: She is not in acute distress. Appearance: She is not toxic-appearing or diaphoretic. HENT: Head: Normocephalic and atraumatic. Nose: Nose normal. Mouth/Throat: Pharynx: Uvula midline. No pharyngeal swelling, oropharyngeal exudate, posterior oropharyngeal erythema or uvula swelling. Eyes: General: Lids are normal. No scleral icterus. Right eye: No discharge. Left eye: No discharge. Conjunctiva/sclera: Conjunctivae normal. Pupils: Pupils are equal, round, and reactive to light. Neck: Trachea: Trachea normal. Cardiovascular: Rate and Rhythm: Normal rate and regular rhythm. Heart sounds: Normal heart sounds. Pulmonary: Effort: Pulmonary effort is normal. Breath sounds: Normal breath sounds. Musculoskeletal: Cervical back: Normal range of motion and neck supple. Lymphadenopathy: Cervical: No cervical adenopathy. Right cervical: No superficial cervical adenopathy. Left cervical: No superficial cervical adenopathy. Skin: Findings: No rash. Neurological: Mental Status: She is alert and oriented to person, place, and time. ASSESSMENT/PLAN: 1. URI, acute - ICD9: 465.9, ICD10: J06.9 - Discussed viral etiology and rationale for treatment. - Symptomatic treatment with prn analgesia - Supportive care with fluids and rest - Follow up in 3-5 days if symptoms persist or sooner if worsening of symptoms - COVID WITH FLUA+B, ROUTINE Felipe Mcdonald APRN.MEDICAL EDUCATION COORDINATOR documented in this encounter [facility] History of Present illness Narrative 03-31-2022 Rafa Garcia APRN.KIMBERLY - 03/31/2022 4:22 PM EDT Note Date & Type Note Facility 03-31-2022 History of Presen t illness Narrative Subjective HPI Nontoxic-appearing female presents to urgent care chief complaint bilateral ear pain. Duration of symptoms 4 days. Associated symptoms increasing bilateral ear pain. Patient was seen here at this urgent care on Wednesday. Diagnosed with otitis media. Placed on Cortisporin and amoxicillin. Patient states symptoms are not improving. States ear pain is worsening. Denies any other symptoms. No known sick contacts. Denies any fever body aches or chills. Denies any ear trauma loss of hearing. Patient states hearing is slightly muffled. Denies any nausea vomiting abdominal pain chest pain shortness of breath or change in bowel or bladder habits. Past medical history prescription medication use allergies reviewed. Denies chance of is not breast-feeding. .Patient presents with: Ear Pain: Bilateral ear pain x 4 days PAST MEDICAL HISTORY Diagnosis Date Intractable migraine without aura and without status migrainosus ALLERGIES Bee Sting, Tetanus Vaccines And Toxoid, and Vaccine Adjuvant Emulsion As03 MEDICATIONS amoxicillin (AMOXIL) 875 mg tablet Take 1 tablet by mouth twice daily for 7 days. irwjzhad-ivuekbjai-awotdgxsoxnpki (CORTISPORIN) otic solution Use 3 Drops in the left ear three times daily. epinephrine (EPIPEN INJECTION) Inject intramuscularly. SUMAtriptan (IMITREX) 100 mg tablet Take 1 tablet by mouth as needed. at onset of headache. May repeat after 2 hours. (Patient not taking: Reported on 03/29/2022) rimegepant (NURTEC ODT) 75 mg ODT Take 1 tablet by mouth as needed (for migriane pain. Max dose is 1 tab in 24 hrs.). (Patient not taking: Reported on 03/29/2022) cholecalciferol (VITAMIN D3) 5,000 unit tab Take 1 tablet by mouth once daily. (Patient not taking: Reported on 03/29/2022) History reviewed. No pertinent family history. Social History Tobacco Use Smoking status: Every Day Smokeless tobacco: Never BP 128/72 Pulse 81 Temp 37.3 C (99.1 F) (Tympanic) Resp 18 Wt 135.8 kg (299 lb 6.4 oz) LMP 09/04/2018 SpO2 98% Review of Systems Constitutional: Negative for chills, fever and malaise/fatigue. HENT: Positive for congestion and ear pain. Negative for ear discharge, hearing loss, sinus pain, sore throat and tinnitus. Eyes: Negative for blurred vision, pain, discharge and redness. Respiratory: Negative for cough, hemoptysis, sputum production, shortness of breath, wheezing and stridor. Cardiovascular: Negative for chest pain. Gastrointestinal: Negative for abdominal pain, diarrhea, nausea and vomiting. Musculoskeletal: Negative for myalgias. Skin: Negative for itching and rash. Neurological: Negative for dizziness and headaches. Objective Physical Exam Vitals and nursing note reviewed. Constitutional: General: She is not in acute distress. Appearance: She is not diaphoretic. HENT: Head: Normocephalic and atraumatic. Jaw: No trismus, tenderness, swelling or pain on movement. Right Ear: Hearing, ear canal and external ear normal. No decreased hearing noted. Tenderness present. No drainage or swelling. Tympanic membrane is erythematous and bulging. Tympanic membrane is not perforated. Left Ear: Hearing, ear canal and external ear normal. No decreased hearing noted. No drainage, swelling or tenderness. Tympanic membrane is erythematous and bulging. Tympanic membrane is not perforated. Mouth/Throat: Lips: Robert Lee. Mouth: Mucous membranes are moist. Pharynx: Oropharynx is clear. Uvula midline. No pharyngeal swelling, oropharyngeal exudate, posterior oropharyngeal erythema or uvula swelling. Eyes: General: Right eye: No discharge. Left eye: No discharge. Conjunctiva/sclera: Conjunctivae normal. Pupils: Pupils are equal, round, and reactive to light. Cardiovascular: Rate and Rhythm: Normal rate and regular rhythm. Heart sounds: Normal heart sounds. Pulmonary: Effort: Pulmonary effort is normal. No tachypnea, accessory muscle usage or respiratory distress. Breath sounds: Normal breath sounds. No stridor. No wheezing, rhonchi or rales. Chest: Chest wall: No tenderness. Abdominal: Palpations: Abdomen is soft. Tenderness: There is no abdominal tenderness. Musculoskeletal: General: No tenderness. Normal range of motion. Cervical back: Normal range of motion and neck supple. No rigidity or tenderness. Lymphadenopathy: Head: Right side of head: No submental, submandibular, tonsillar, preauricular, posterior auricular or occipital adenopathy. Left side of head: No submental, submandibular, tonsillar, preauricular, posterior auricular or occipital adenopathy. Cervical: No cervical adenopathy. Right cervical: No superficial or posterior cervical adenopathy. Left cervical: No superficial or posterior cervical adenopathy. Skin: General: Skin is warm and dry. Findings: No rash. Neurological: Mental Status: She is alert and oriented to person, place, and time. ASSESSMENT/PLAN: 1. Acute otitis media, bilateral - ICD9: 382.9, ICD10: H66.93 (primary diagnosis) 2. Acute otitis externa of right ear, unspecified type - ICD9: 380.10, ICD10: H60.501 Patient diagnosed with bilateral otitis media and otitis externa right ear. Will discontinue amoxicillin and Cortisporin. Will start Augmentin and ofloxacin. COVID-19 test offered declined testing. Patient was educated on supportive therapies. Patient will follow up with primary care provider as needed. Patient was instructed to immediately proceed to emergency room for any new, worsening, or symptoms lasting longer than anticipated. The patient's clinical presentation is otherwise unremarkable at this time. Based on exam and clinical finding, the patient is stable for discharge. Plan of care was discussed with patient. Patient verbalizes understanding and agrees to plan of care. This note was generated using [employer] software. It may contain errors in wording, punctuation, or spelling. Rafa Garcia APRN.KIMBERLY documented in this encounter [facility] History of Present illness Narrative 03-29-2022 Grace Glasgow APRN.CNP - 03/29/2022 10:06 AM EDT Note Date & Type Note Facility 03-29-2022 History of Presen t illness Narrative Subjective The history is provided by the patient. No referral manager was used. ZHANG Montanez is a 22 year old female who presents today for CC of left ear pain that started in past 2 days and has gotten worse. She has used Tylenol without relief. H/o of AOM, and externa otitis. BP 110/80 Pulse 97 Temp 36.8 C (98.2 F) Resp 20 Wt (!) 136.8 kg (301 lb 9.6 oz) LMP 09/04/2018 SpO2 99% Social History Tobacco Use Smoking status: Every Day Smokeless tobacco: Never PAST MEDICAL HISTORY Diagnosis Date Intractable migraine without aura and without status migrainosus I have confirmed and edited as necessary, the [facility] Review of Systems Constitutional: Negative for chills and fever. HENT: Positive for ear pain. Negative for congestion, sinus pain and sore throat. Respiratory: Negative for cough, sputum production, shortness of breath and wheezing. Cardiovascular: Negative for chest pain. Musculoskeletal: Negative for myalgias. Neurological: Negative for headaches. Objective Physical Exam Vitals and nursing note reviewed. HENT: Head: Normocephalic and atraumatic. Right Ear: Tympanic membrane, ear canal and external ear normal. No swelling or tenderness. Tympanic membrane is not erythematous or bulging. Left Ear: Ear canal and external ear normal. Drainage and swelling present. A middle ear effusion is present. Tympanic membrane is injected, erythematous and bulging. Nose: No mucosal edema, congestion or rhinorrhea. Right Sinus: No maxillary sinus tenderness or frontal sinus tenderness. Left Sinus: No maxillary sinus tenderness or frontal sinus tenderness. Mouth/Throat: Pharynx: Uvula midline. No oropharyngeal exudate or posterior oropharyngeal erythema. Cardiovascular: Rate and Rhythm: Normal rate and regular rhythm. Heart sounds: Normal heart sounds. Pulmonary: Effort: Pulmonary effort is normal. Breath sounds: Normal breath sounds. Lymphadenopathy: Head: Right side of head: No submental, submandibular or tonsillar adenopathy. Left side of head: No submental, submandibular or tonsillar adenopathy. Cervical: No cervical adenopathy. Skin: General: Skin is warm and dry. Neurological: Mental Status: She is alert. Psychiatric: Mood and Affect: Affect normal. ASSESSMENT/PLAN: 1. Acute suppurative otitis media of left ear - ICD9: 382.00, ICD10: H66.002 (primary diagnosis) - Will begin treatment with Amoxicillin for 7 days - Supportive care with plenty of fluids, rest, and analgesia prn. - Follow up in one week if symptoms persist or worsen. 2. Acute otitis externa of left ear, unspecified type - ICD9: 380.10, ICD10: H60.502 Coritisporin solution as ordered If no improvement follow up with ENT Diagnosis and treatment plan were discussed and questions were answered to the patient's satisfaction. Pt acknowledged understanding of concepts and follow up plan. Specific signs and symptoms that would indicate the need for higher level of care were discussed in detail warranting prompt ER evaluation. Grace Glasgow APRN.CNP documented in this encounter [facility] Evaluation note Note Date & Type Note Facility documented in this encounter [facility] Evaluation note Note Date & Type Note Facility documented in this encounter [facility] Evaluation note Note Date & Type Note Facility documented in this encounter [facility] Summary Purpose Family History No Family History Records FoundNo Family History Records FoundNo Family History Records FoundNo Family History Records FoundNo Family History Records FoundNo Family History Records Found Advance Directives No Advanced Directives Records FoundNo Advanced Directives Records FoundNo Advanced Directives Records FoundNo Advanced Directives Records FoundNo Advanced Directives Records FoundNo Advanced Directives Records Found Additional Source Comments INFORMATION SOURCE (unrecogn ized section and content) DATE CREATED AUTHOR AUTHOR'S ORGANIZ ATION 02/02/2018 [facility] DATE CREATED AUTHOR AUTHOR'S ORGANIZ ATION 02/02/2018 [facility] DATE CREATED AUTHOR AUTHOR'S ORGANIZ ATION 09/14/2020 [facility] DATE CREATED AUTHOR AUTHOR'S ORGANIZ ATION 12/12/2021 [facility] DATE CREATED AUTHOR AUTHOR'S ORGANIZ ATION 07/25/2023 [facility] Source Comments (unrecognize d section and content) In the event this informatio n is protected by the Federal Confidentiality of Alcohol and Drug Abuse Patient Records regulations: The Federal rules restrict any use of the information to criminally investigate or prosecute any alcohol or drug abuse patient.[facility] event this information is protected by the Federal Confidentiality of Alcohol and Drug Abuse Patient Records regulations: The Federal rules restrict any use of the information to criminally investigate or prosecute any alcohol or drug abuse patient.[facility] the event this information is protected by the Federal Confidentiality of Alcohol and Drug Abuse Patient Records regulations: The Federal rules restrict any use of the information to criminally investigate or prosecute any alcohol or drug abuse patient.[facility] Reason for Visit (unrecogniz ed section and content) Reason Comments Ear Pain Bilateral ear pain x 4 days Reason Comments Headache Nasal congestion, th roat pain x1 day. Care Teams (unrecognized sec tion and content) Rocket Motor Tester Relationship Specialty Start Date End Date Humza Mena MD [address] [place] [address] PCP - General Family Practice 12/24/15 Humza Mena MD [address] [place] [address] 12/24/15 Rocket Motor Tester Relationship Specialty Start Date End Date Humza Mena MD [address] [place] [address] PCP - General Family Medicine 12/24/15 Humza Mena MD [address] [place] [address] 12/24/15 FOR RECORDS PERTAINING TO PATIENTS WHO ARE OR HAVE BEEN ENROLLED IN A CHEMICAL DEPENDENCY/SUBSTANCEABUSE PROGRAM, SOME INFORMATION MAY BE OMITTED. This clinical summary was aggregated from multiple sources. Caution should be exercised in using it in the provision of clinical care. This summary normalizes information from multiple sources, and as a consequence, information in this document may materially change the coding, format and clinical context of patient data. In addition, data may be omitted in some cases. CLINICAL DECISIONS SHOULD BE BASED ON THE PRIMARY CLINICAL RECORDS. [facility]. provides no warranty or guarantee of the accuracy or completeness of information in this document.
== END | disposition home or self-care (01) ==
LOC: US 16:22
PROVIDERS: Referring Provider Nurse Practitioner Women's Health; Visit Provider Nurse Practitioner Women's Health
DX: Z34.90 Encounter for supervision of normal pregnancy, unspecified, unspecified trimester (principal)
CPT/HCPCS: 76817

== ENCOUNTER → 2023-08-24 | Outpatient (CLI) | payer MEDICAID, SELFPAY ==
[2023-08-24 14:14] LABS: Absolute Lymphocyte Count 2.05 X10^3/uL (0.83-4.51); Absolute Neutrophil Count 11.5 X10^3/uL (2.0-7.7); Basophil# 0.05 X10^3/uL; Basophil% 0.3 % (0-1); Eosinophil# 0.17 X10^3/uL; Eosinophils% 1.2 % (0-5); Hematocrit 39.7 % (37-47); Hemoglobin 12.9 g/dL (12.0-15.0); Lymphocyte # 2.05 X10^3/ul (0.83-4.51); Mean Corp Hgb Conc 32.5 g/dL (32-36); Mean Corpuscular Hgb 26.9 pg (27.0-32.0); Mean Corpuscular Volume 82.9 fL (81-99); Mean Platelet Vol. 8.5 fl (6.2-12.0); Monocyte# 0.86 X10^3/uL; Monocyte% 5.9 % (0-10); NRBC Flagged by Analyzer 0 % (0-5); Neutrophil # 11.45 X10^3/uL (2.7-7.7); Platelet Count 233 K/mm3 (150-450); RBC Distribution Width CV 13.2 % (11.6-14.6); RBC Distribution Width SD 39.9 fl (35.1-43.9); Red Blood Count 4.79 M/mm3 (4.2-5.4); White Blood Count 14.7 K/mm3 (4.4-11.0)
[2023-08-24 14:31] LABS: Hemoglobin A1c 5.2 % (3.8-5.6)
[2023-08-24 15:06] LABS: HIV - WCH Non-Reactive (Nonreactive); Hepatitis B Surface Antigen Non-Reactive (Nonreactive); Hepatitis C Antibody Non-Reactive (Nonreactive); Rubella IgG Reactive (Nonreactive); Syphilis Antibodies Non-reactive
--- OUTSIDE RECORDS SUMMARY | 2023-08-24 15:41 | XMS RPT_ITS | CCD ---
Author Name Unknown Address [address] [place] [address] Organization [facility] Care Team Providers Care Bin Worker Name Role Phone SCHWIGER, HESHAM Unavailable Unavailable SCHWIGER, HESHAM Unavailable Unavailable NO REFERRING Unavailable Unavailable MIRACLE SALGUERO Unavailable Unavailable MIRACLE SALGUERO Unavailable Unavailable NO REFERRING Unavailable Unavailable HESHAM MÉNDEZ Unavailable Unavailable HESHAM MÉNDEZ Unavailable Unavailable MIRACLE SALGUERO Unavailable Unavailab MIRACLE Malik Unavailable Unavailab Humza Sweeney MD Primary Care Provider Humza Mena MD Unavailable Humza Mena MD Primary Care Provider Humza Mena MD Unavailable HUMZA MENA Primary Care Unavailable Allergies Allergy Classification Reported Allergen(s) Allergy Type Date of Onset Reaction(s) Facility (6 sources) BEE STING; Translations: [BEE STING] Propensity to adverse reactions (disorder) 6 Swelling [facility] Repository (6 sources) TETANUS VACCINES AND TOXOID; Translations: [TETANUS VACCINES AND TOXOID] Propensity to adverse reactions to drug (disorder) 2 Other: See Comments [facility] Repository (2 sources) VACCINE ADJUVANT EMULSION COMBINATION NO. 1; Translations: [VACCINE ADJUVANT EMULSION COMBINATION NO. 1] Propensity to adverse reactions to drug (disorder) 6 AOF [facility] Repository (4 sources) Vaccine Adjuvant Emulsion As03; Translations: [VACCINE ADJUVANT EMULSION AS03] Drug Allergy 6 Swelling [facility] (2 sources) Bee pollen; Translations: [BEE POLLEN] Drug Allergy 1 Hives [facility] Medications Current Medications Medication Drug Class(es) Dates [...] 08-27-2016 Episodic Other aftercare (1 source) Other group home (current) drug therapy; Translations: [[employer] CURRENT DR] Onset: 03-04-2017 Episodic Other ear and sense organ disorders (5 sources) Otalgia, bilateral; Translations: [Impacted cerumen, left ear] Onset: 03-02-2017 Episodic Results Test Name Value Interpretation Reference Range Facil ity Vital Signs Date Time Vital Sign Value Performing Clinician Mela amezcua 07-23-2022 15:23-0500 Body temperature 97.9 [degF] Felipe Mcdonald MACHINE PACKAGE SEALER.FENCE GATE ASSEMBLER Work Phone: [facility] 07-23-2022 15:23-0500 Body weight 138.71 kg Felipe Mcdonald MACHINE PACKAGE SEALER.FENCE GATE ASSEMBLER Work Phone: [facility] 07-23-2022 15:23-0500 Diastolic blood pressure 68 mm[Hg] Felipe Mcdonald MACHINE PACKAGE SEALER.FENCE GATE ASSEMBLER Work Phone: [facility] 07-23-2022 15:23-0500 Heart rate 99 /min Felipe Mcdonald MACHINE PACKAGE SEALER.FENCE GATE ASSEMBLER Work Phone: [facility] 07-23-2022 15:23-0500 SaO2% (BldA) [Mass fraction] 99 % Felipe Mcdonald MACHINE PACKAGE SEALER.FENCE GATE ASSEMBLER Work Phone: [facility] 07-23-2022 15:23-0500 Systolic blood pressure 122 mm[Hg] Felipe Mcdonald MACHINE PACKAGE SEALER.FENCE GATE ASSEMBLER Work Phone: [facility] 03-31-2022 16:13-0400 Body temperature 99.1 [degF] Rafa Garcia MACHINE PACKAGE SEALER.FENCE GATE ASSEMBLER Work Phone: [facility] 03-31-2022 16:13-0400 Body weight 135.81 kg Rafa Garcia MACHINE PACKAGE SEALER.FENCE GATE ASSEMBLER Work Phone: [facility] 03-31-2022 16:13-0400 Diastolic blood pressure 72 mm[Hg] Rafa Gacria MACHINE PACKAGE SEALER.FENCE GATE ASSEMBLER Work Phone: [facility] 03-31-2022 16:13-0400 Heart rate 81 /min Rafa Pendlebury MACHINE PACKAGE SEALER.FENCE GATE ASSEMBLER Work Phone: [facility] 03-31-2022 16:13-0400 Respiratory rate 18 /min Rafa Pendlebury MACHINE PACKAGE SEALER.FENCE GATE ASSEMBLER Work Phone: [facility] 03-31-2022 16:13-0400 SaO2% (BldA) [Mass fraction] 98 % Rafa Pendlebury MACHINE PACKAGE SEALER.FENCE GATE ASSEMBLER Work Phone: [facility] 03-31-2022 16:13-0400 Systolic blood pressure 128 mm[Hg] Rafa Pendlebury MACHINE PACKAGE SEALER.FENCE GATE ASSEMBLER Work Phone: [facility] 03-29-2022 09:25-0400 Body temperature 98.2 [degF] Grace Myah MACHINE PACKAGE SEALER.FENCE GATE ASSEMBLER Work Phone: [facility] 03-29-2022 09:25-0400 Body weight 136.81 kg Grace Myah MACHINE PACKAGE SEALER.FENCE GATE ASSEMBLER Work Phone: [facility] 03-29-2022 09:25-0400 Diastolic blood pressure 80 mm[Hg] Grace Myah MACHINE PACKAGE SEALER.FENCE GATE ASSEMBLER Work Phone: [facility] 03-29-2022 09:25-0400 Heart rate 97 /min Grace Myah MACHINE PACKAGE SEALER.FENCE GATE ASSEMBLER Work Phone: [facility] 03-29-2022 09:25-0400 Respiratory rate 20 /min Grace Myah MACHINE PACKAGE SEALER.FENCE GATE ASSEMBLER Work Phone: [facility] 03-29-2022 09:25-0400 SaO2% (BldA) [Mass fraction] 99 % Grace Myah MACHINE PACKAGE SEALER.FENCE GATE ASSEMBLER Work Phone: [facility] 03-29-2022 09:25-0400 Systolic blood pressure 110 mm[Hg] Grace Myah MACHINE PACKAGE SEALER.FENCE GATE ASSEMBLER Work Phone: [facility] Encounters Encounter Date Encounter Type Care Provider Facility Start: 07-22-2023 End: 07-22-2023 [facility] Facility:[facility] Start: 07-23-2022 End: 07-23-2022 Patient encounter procedure Felipe Mcdonald KIERAN.KIMBERLY Work Phone: [facility] Procedures Date Procedure Procedure Detail Performing Clinician Start: 09-11-2020 Adult depression screening assessment Grace Yuanena ROSADO Work Phone: Plan of Treatment Date Care Activity Detail Author Start: 05-18-2022 Urine microalbumin profile DTAP,TDAP,TD (6 - Td or Tdap) [facility] Start: 04-09-2022 Influenza vaccination INFLUENZA (#1) [facility] Start: 09-11-2021 Adult depression screening assessment DEPRESSION SCREENING [facility] Start: 08-09-2021 DEPRESSION ASSESSMENT DEPRESSION ASSESSMENT [facility] Start: 2019 PAP TESTING PAP TESTING [facility] Start: 2016 CHLAMYDIA SCREENING (18-24) CHLAMYDIA SCREENING (18-24) [facility] Start: 2016 GC (GONORRHEA) SCREENING (18-24) GC (GONORRHEA) SCREENING (18-24) [facility] Start: 2016 HEPATITIS C SCREENING HEPATITIS C SCREENING [facility] Start: 2016 HIV SCREENING HIV SCREENING [facility] Start: 11-16-2012 HPV VACCINE (2 - 2-dose series) HPV VACCINE (2 - 2-dose series) [facility] Start: 2012 PEDS TO ADULT TRANSITION ANNUAL ASSESSMENT PEDS TO ADULT TRANSITION ANNUAL ASSESSMENT [facility] Start: 2010 PEDS TO ADULT TRANSITION INITIAL DISCUSSION PEDS TO ADULT TRANSITION INITIAL DISCUSSION [facility] Start: 2008 MENINGOCOCCAL B: Consider based on risk (1 of 2 - Risk Bexsero 2-dose series) MENINGOCOCCAL B: Consider based on risk (1 of 2 - Risk Bexsero 2-dose series) [facility] Start: 2004 PNEUMOCOCCAL (1 - PCV) PNEUMOCOCCAL (1 - PCV) [facility] ic Start: 1998 COVID-19 VACCINE (#1) COVID-19 VACCINE (#1) [facility] Influenza virus A an d B RNA and SARS-CoV-2 (COVID-19) N gene panel - Respiratory specimen by NILS with probe detection COVID WITH FLUA+B, ROUTINE Microbiology Routine URI, acute 07/23/2022 4:20 PM EST [facility] Work Phone: Immunizations Immunization Date Immunization Notes Care Provider Morenita zapata 05-18-2012 human papilloma viru s vaccine, quadrivalent Grace Glasgow APRN.FENCE GATE ASSEMBLER Work Phone: [facility] 05-18-2012 Meningococcal, MCV4, unspecified conjugate formulation(groups A, C, Y and W-135) Grace Glasgow APRN.FENCE GATE ASSEMBLER Work Phone: [facility] 05-18-2012 tetanus toxoid, redu triny diphtheria toxoid, and acellular pertussis vaccine, adsorbed Gracedavid Glasgow MACHINE PACKAGE SEALER.FENCE GATE ASSEMBLER Work Phone: [facility] 12-02-2005 diphtheria, tetanus toxoids and acellular pertussis vaccine Grace Glasgow MACHINE PACKAGE SEALER.FENCE GATE ASSEMBLER Work Phone: [facility] 12-02-2005 poliovirus vaccine, inactivated Grace Glasgow APRN.FENCE GATE ASSEMBLER Work Phone: [facility] Payers Date Payer Category Payer Medicaid [id number] 2022 Medicaid [id number] Unknown [id number] Social History Date Type Detail Facility Start: 03-29-[facility]22 [facility] Start: 03-29-2022 Tobacco use and exposure Smoke less tobacco non-user [facility] Start: 2000 Sex Assigned At Not on file C [facility] Start: 03-21-2022 End: 03-31-2022 Exposure to SARS-CoV-2 (event) Not sure [facility] Start: 07-23-2022 [facility] Start: 07-23-2022 Tobacco use and exposure User of smo keless tobacco [facility] Start: 07-23-2022 Alcohol intake Lifetime non-d gayle (finding) [facility] Start: 07-23-2022 Tobacco Comment [facility] Progress note 07-22-2023 Note Date & Type Note Facility 07-22-2023 Note HNO ID: [id number] Author: Miguel Draper MD Service: ? Author [...] INFLUENZA A/B NAAT, ROUTINE Miguel Draper MD [facility] Instructions 07-23-2022 Patient Instructions Note Date & Type Note Facility 07-23-2022 Instructions Felipe Mcdonald APRN.FENCE GATE ASSEMBLER - 07/23/2022 3:39 PM EST RESPIRATORY INFECTION [...] by coughs, sneezes, and direct contact, especially [id number]. A respiratory tract infection usually clears up [...] F (39 C). documented in this encounter [facility] History of Present illness Narrative 07-23-2022 Felipe [...] - COVID WITH FLUA+B, ROUTINE Felipe Mcdonald APRN.FENCE GATE ASSEMBLER documented in this encounter [facility] History of Present illness Narrative 03-31-2022 Rafa [...] by mouth twice daily for 7 days. [id number]-mstqsdikm-tuscisjevgzfav (CORTISPORIN) otic solution Use 3 Drops in [...] Tympanic membrane is not perforated. Mouth/Throat: Lips: [employer]. Mouth: Mucous membranes are moist. Pharynx: Oropharynx [...] of care. This note was generated using [employer] software. It may contain errors in wording, punctuation, or spelling. Rafa Garcia APRN.KIMBERLY documented in this encounter [facility] History of Present illness Narrative 03-29-2022 Grace Glasgow APRN.CNP - 03/29/2022 10:06 AM EDT Note Date & Type Note Facility 03-29-2022 History of Presen t illness Narrative Subjective The history is provided by the patient. No hourly sign language interpreter was used. ZHANG Montanez is a 22 [...] have confirmed and edited as necessary, the [facility] Review of Systems Constitutional: Negative for [...] Grace Glasgow APRN.CNP documented in this encounter [facility] Evaluation note Note Date & Type Note Facility documented in this encounter [facility] Evaluation note Note Date & Type Note Facility documented in this encounter [facility] Evaluation note Note Date & Type Note Facility documented in this encounter [facility] Summary Purpose Family History No Family History [...] DATE CREATED AUTHOR AUTHOR'S ORGANIZ ATION 02/02/2018 [facility] DATE CREATED AUTHOR AUTHOR'S ORGANIZ ATION 02/02/2018 [facility] DATE CREATED AUTHOR AUTHOR'S ORGANIZ ATION 09/14/2020 [facility] DATE CREATED AUTHOR AUTHOR'S ORGANIZ ATION 12/12/2021 [facility] DATE CREATED AUTHOR AUTHOR'S ORGANIZ ATION 07/25/2023 [facility] Source Comments (unrecognize d section and content) In the event this informatio n is protected by the Federal Confidentiality of Alcohol and Drug Abuse Patient Records regulations: The Federal rules restrict any use of the information to criminally investigate or prosecute any alcohol or drug abuse patient[facility] event this information is protected by the Federal Confidentiality of Alcohol and Drug Abuse Patient Records regulations: The Federal rules restrict any use of the information to criminally investigate or prosecute any alcohol or drug abuse patient.[facility] the event this information is protected by the Federal Confidentiality of Alcohol and Drug Abuse Patient Records regulations: The Federal rules restrict any use of the information to criminally investigate or prosecute any alcohol or drug abuse patient.[facility] Reason for Visit (unrecogniz ed section and content) Reason Comments Ear Pain Bilateral ear pain x 4 days Reason Comments Headache Nasal congestion, th roat pain x1 day. Care Teams (unrecognized sec tion and content) Bin Worker Relationship Specialty Start Date End Date Humza Mena MD [address] [place] [address] PCP - General Family Practice 12/24/15 Humza Mena MD [address] [place] [address] 12/24/15 Bin Worker Relationship Specialty Start Date End Date Humza Mena MD [address] [place] [address] PCP - General Family Medicine 12/24/15 Humza Mena MD [address] [place] [address] 12/24/15 FOR RECORDS PERTAINING TO PATIENTS WHO [...] BE BASED ON THE PRIMARY CLINICAL RECORDS. [facility] [employer] [facility]. provides no warranty or guarantee of the accuracy or completeness of information in this document.
[2023-08-24 16:42] LABS: Amphetamine Urine VISTA NEGATIVE (<1000 ng/mL); Barbiturate Urine VISTA NEGATIVE (< 200 ng/mL); Benzodiazepine Urine VISTA NEGATIVE (< 200 ng/mL); Cocaine Urine VISTA NEGATIVE (< 300 ng/mL); Ecstacy Urine VISTA NEGATIVE (< 500 ng/mL); Methadone Urine VISTA NEGATIVE (< 300 ng/mL); PCP Urine VISTA NEGATIVE (< 25 ng/mL); THC Urine VISTA POSITIVE (< 50 ng/mL); Vista UDS pH Range 5
[2023-08-27 04:07] LABS: Chlamydia By Nucleic Acid AMP Negative (Negative); Gonococcus By Nucleic Acid AMP Negative (Negative)
== END | disposition home or self-care (01) ==
PROVIDERS: Referring Provider Advanced Practice Midwife; Visit Provider Advanced Practice Midwife
DX: Z34.90 Encounter for supervision of normal pregnancy, unspecified, unspecified trimester (principal)
CPT/HCPCS: 36415; 80307; 83036; 85025; 86703; 86762; 86780; 86803; 86850; 86900; 86901; 87086; 87340; 87491; 87591

== ENCOUNTER → 2023-11-18 | Outpatient (CLI) | payer MEDICAID, SELFPAY ==
[2023-11-18 13:02] LABS: Amphetamine Urine VISTA NEGATIVE (<1000 ng/mL); Barbiturate Urine VISTA NEGATIVE (< 200 ng/mL); Benzodiazepine Urine VISTA NEGATIVE (< 200 ng/mL); Cocaine Urine VISTA NEGATIVE (< 300 ng/mL); Ecstacy Urine VISTA NEGATIVE (< 500 ng/mL); Methadone Urine VISTA NEGATIVE (< 300 ng/mL); PCP Urine VISTA NEGATIVE (< 25 ng/mL); THC Urine VISTA NEGATIVE (< 50 ng/mL); Vista UDS pH Range 6
== END | disposition home or self-care (01) ==
LOC: LAB 11:52
PROVIDERS: Referring Provider Obstetrics & Gynecology; Visit Provider Obstetrics & Gynecology
DX: F12.10 Cannabis abuse, uncomplicated (principal)
CPT/HCPCS: 80307

== ENCOUNTER → 2023-12-15 | Outpatient (CLI) | payer MEDICAID, SELFPAY ==
[2023-12-15 08:45] LABS: Absolute Lymphocyte Count 2.37 X10^3/uL (0.83-4.51); Absolute Neutrophil Count 10.9 X10^3/uL (2.0-7.7); Basophil# 0.06 X10^3/uL; Basophil% 0.4 % (0-1); Eosinophil# 0.39 X10^3/uL; Eosinophils% 2.6 % (0-5); Hematocrit 37.6 % (37-47); Hemoglobin 12.3 g/dL (12.0-15.0); Lymphocyte # 2.37 X10^3/ul (0.83-4.51); Lymphocyte % 16.1 % (19-41); Mean Corp Hgb Conc 32.7 g/dL (32-36); Mean Corpuscular Hgb 28.2 pg (27.0-32.0); Mean Corpuscular Volume 86.2 fL (81-99); Mean Platelet Vol. 8.7 fl (6.2-12.0); Monocyte# 0.83 X10^3/uL; Monocyte% 5.6 % (0-10); NRBC Flagged by Analyzer 0 % (0-5); Neutrophil # 10.85 X10^3/uL (2.7-7.7); Neutrophil % 73.7 % (47-70); Platelet Count 204 K/mm3 (150-450); RBC Distribution Width CV 12.7 % (11.6-14.6); RBC Distribution Width SD 39.7 fl (35.1-43.9); Red Blood Count 4.36 M/mm3 (4.2-5.4); White Blood Count 14.7 K/mm3 (4.4-11.0)
[2023-12-15 09:10] LABS: Glucose Challenge Gest 1H 50g 154 mg/dL (70-140)
[2023-12-15 10:14] LABS: HIV - WCH Non-Reactive (Nonreactive); Syphilis Antibodies Non-reactive
== END | disposition home or self-care (01) ==
PROVIDERS: Referring Provider Obstetrics & Gynecology; Visit Provider Obstetrics & Gynecology
DX: O26.899 Other specified pregnancy related conditions, unspecified trimester (principal); Z67.91 Unspecified blood type, Rh negative; Z13.1 Encounter for screening for diabetes mellitus; Z3A.00 Weeks of gestation of pregnancy not specified
CPT/HCPCS: 36415; 82950; 85025; 86703; 86780; 86850; 86900; 86901

== ENCOUNTER → 2023-12-20 | Outpatient (CLI) | payer MEDICAID, SELFPAY ==
[2023-12-20 08:52] LABS: Glucose GTT-Gestation. Fasting 86 mg/dL (<105)
[2023-12-20 08:57] LABS: Glucose GTT-Gestational 1 Hr 170 mg/dL (<190)
[2023-12-20 09:57] LABS: Glucose GTT-Gestational 2 Hr 151 mg/dL (<165)
[2023-12-20 11:13] LABS: Glucose GTT-Gestational 3 Hr 109 L (<145)
== END | disposition home or self-care (01) ==
PROVIDERS: Referring Provider Obstetrics & Gynecology; Visit Provider Obstetrics & Gynecology
DX: Z13.1 Encounter for screening for diabetes mellitus (principal)
CPT/HCPCS: 36415; 82951; 82952

== ENCOUNTER 2024-01-31 11:58 | Outpatient (CLI) | payer MEDICAID, SELFPAY ==
[2024-01-31] MEDS: Betamethasone/Betamethasone 30 MG/5 ML Vial 12 MG IM (12:17)
--- NOTE | 2024-02-02 23:09 | OB.TRI.PN ---
Progress Notes Date of Service: 01/31/24 Progress Note: twins prematurity 35 weeks given celestone IM injection
== END 2024-01-31 12:25 | disposition home or self-care (01) ==
LOC: WPOUT 12:07 → WP 12:07
PROVIDERS: Referring Provider Obstetrics & Gynecology; Visit Provider Obstetrics & Gynecology
DX: O60.03 Preterm labor without delivery, third trimester (principal); Z3A.35 35 weeks gestation of pregnancy
CPT/HCPCS: 96372; 99221; G0378; J0702

== ENCOUNTER 2024-02-01 12:05 | Outpatient (CLI) | payer MEDICAID, SELFPAY ==
[2024-02-01] MEDS: Betamethasone/Betamethasone 30 MG/5 ML Vial 12 MG IM (12:34)
== END 2024-02-01 12:43 | disposition home or self-care (01) ==
LOC: WPOUT 12:07 → WP 12:16
PROVIDERS: Referring Provider Registered Nurse; Visit Provider Registered Nurse
DX: O30.033 Twin pregnancy, monochorionic/diamniotic, third trimester (principal); E66.01 Morbid (severe) obesity due to excess calories; O99.810 Abnormal glucose complicating pregnancy; O26.893 Other specified pregnancy related conditions, third trimester; Z67.91 Unspecified blood type, Rh negative; O99.213 Obesity complicating pregnancy, third trimester; Z3A.34 34 weeks gestation of pregnancy; Z79.82 Long term (current) use of aspirin
CPT/HCPCS: 96372; 99221; G0378; J0702

== ENCOUNTER 2024-02-07 09:30 | Inpatient (IN) | payer MEDICAID, SELFPAY ==
[2024-02-07] VITALS (16 sets, daily range): BP systolic 107–138; BP diastolic 60–86; PULSE 80–112; RESP 16; TEMP 36.1–37.1; O2SAT 94–99; BMI 59.5
[2024-02-07] MEDS: Lactated Ringers 1,000 ML 999 ML IV (11:00)
[2024-02-07 11:02] LABS: Absolute Lymphocyte Count 2.48 X10^3/uL (0.83-4.51); Absolute Neutrophil Count 12.3 X10^3/uL (2.0-7.7); Basophil# 0.06 X10^3/uL; Basophil% 0.4 % (0-1); Eosinophil# 0.15 X10^3/uL; Eosinophils% 0.9 % (0-5); Hemoglobin 12.8 g/dL (12.0-15.0); Lymphocyte # 2.48 X10^3/ul (0.83-4.51); Lymphocyte % 14.9 % (19-41); Mean Corp Hgb Conc 32.8 g/dL (32-36); Mean Corpuscular Hgb 28.6 pg (27.0-32.0); Mean Corpuscular Volume 87.2 fL (81-99); Monocyte# 1.36 X10^3/uL; Monocyte% 8.2 % (0-10); NRBC Flagged by Analyzer 0 % (0-5); Neutrophil # 12.31 X10^3/uL (2.7-7.7); Platelet Count 180 K/mm3 (150-450); RBC Distribution Width CV 12.4 % (11.6-14.6); RBC Distribution Width SD 39.5 fl (35.1-43.9); Red Blood Count 4.47 M/mm3 (4.2-5.4); White Blood Count 16.6 K/mm3 (4.4-11.0)
[2024-02-07] MEDS: Acetaminophen 500 MG Tablet 1000 MG PO ×3 (11:26→23:32)
[2024-02-07] MEDS: Lactated Ringers 1,000 ML 150 ML IV (11:26)
[2024-02-07 11:44] LABS: Syphilis Antibodies Non-reactive
[2024-02-07] MEDS: Sodium Citrate/Citric Acid 30 ML UDC PO (11:59)
[2024-02-07] MEDS: Cefazolin 2 GM in 0.9% Normal Saline (100mL Bag) 100 ML IV (12:06)
--- NOTE | 2024-02-07 12:34 | CYST_PTH ---
PATIENT: NARAYAN MACHADO LOC: WP U#:[id number] AGE/SX: 23/F ROOM: WP004 RE02/07/[address]: Dr. Rhea Driscoll MD : 2000 BED: 1 DIS: 02/10/2024 SPEC #: [id number] RECD: 02/07/24 13:55 STATUS: JANINE RESelam #: [id number] GEE: 02/07/24 12:[address]: Rhea Driscoll DEPT: SURGICAL PATHOLOGY RECD BY: Tracy Bermudez ENTERED: 02/08/24 10:11 SP TYPE: Cyst OTHR DR: Dr. Humza Hamilton MD Tissues: CYST Procedures: Surgery Specimen Level III HEADER OPERATION: Primary section PRE-OP DIAGNOSIS: Peritubal cyst TISSUE SUBMITTED: Peritubal cyst MICROSCOPIC DIAGNOSIS Paratubal cyst, excision: Benign epithelial cyst. See comment. 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 Clinical correlation is suggested. Case has been reviewed in consultation with Dr. Staples who concurs with the above diagnosis. IDC:[email or web address] MICROSCOPIC DESCRIPTION Slides are reviewed. GROSS DESCRIPTION Received is one container labeled with the patient's name and not further designated. The specimen consists of a severe previously partially opened cyst measuring 2.5 x 1.0 x 0.5cm. Cyst wall is smooth without any papillation. This specimen is serially sectioned and submitted entirely in one cassette. Kathie 02/08/2024 TC:1 CPT:81121
--- NOTE | 2024-02-07 13:30 | HP.PCM.OB_ITS ---
HPI - General General Date of Admission: 02/07/24 HPI Narrative NARAYAN MACHADO, is a 23 F who presents for delivery 36 weeks mono di twins due date 03/06/24. she denies any vb or lof. Maternal Data Information ENEDELIA Calculator Estimated Delivery Date Method Current WG Current Estimate 03/06/24 Ultrasound #1 36w 0d # 2 PFSH PFSH Medical History Spontaneous vaginal delivery Polyhydramnios Encounter for induction of labor Polyhydramnios affecting in third trimester Rh negative state in antepartum period Lab test positive for detection of COVID-19 virus Obesity affecting Anxiety and depression Migraines Ovarian cyst Home Medications ?Medication ?Instructions ?Recorded ?Last Taken ?Type multivit-min no.71-iron fum 28 cap PO 08/17/23 Unknown History mg-folate no.1 1 mg-dha 300 mg capsule (PNV-[place]) aspirin 81 mg tablet,delayed 81 mg PO DAILY 10/20/23 Unknown History release folic acid 1 mg tablet 1 mg PO DAILY 10/20/23 Unknown History Allergy/AdvReac Type Severity Reaction Status Date / Time venom-wasp Allergy Severe Anaphylaxis Verified 01/31/24 11:18 tetanus and diphtheria Allergy Hives Verified 01/31/24 11:18 toxoids Family History Sister Congenital heart defect aortic stenosis Other Cancer Diabetes Hypertension Kidney disease Surgical History History of surgery Myringotomy tube status H/O wisdom tooth extraction Social History adopted: No household members: significant other, children and friend(s) number of children: 1 current occupational status: employed current occupation: warehouse pets and animals: Yes pets and animals: dog(s) history of recent travel: No sexually active: Yes Smoking Status: Former smoker Tobacco: How many years used: 6 Electronic Cigarette Use: with nicotine second hand exposure: Yes alcohol intake: never substance use type: does not use well-balanced diet: about half the time caffeine: No eating out: rarely or never during the past year weight has: decreased > 10 lbs what type of physical activity do you participate in: none charity/adventism: None seatbelt use: always do you feel safe at home: Yes additional social history: BF- Beto History 2 Elective abortions Hx Para 1 Spontaneous abortions Hx # Term Pregnancies 1 Ectopic pregnancies Hx # Pregnancies Multiple births # of living children 1 Past Pregnancies Del. Date Name GA/Weeks Outcome Route Bth Weight Infant Gen Labor Lgth Anesthesia Del Locatn Provider FOB 03/10/22 Chava 39 live - full term vacuum 8lbs 7oz Female e pidural [facility] Isabela Montaño Delivery Date: 03/10/22 Last Updated by: Lashanda Barroso see problem list for complications Visit Details Expected Delivery Route/Plan LTCS Labor Preferences- CB/BF classes: [] labor support person: [] labor intervention preferences: [] pain management options preferred: [] cut cord/dad catch: [] : [] PP control planned: [] discussed possible routes of delivery and associated risks: [] special requests: [] Plans Covid status: [] Flu vaccine: declined Tdap vaccine: declined Rhogam: 28 weeks LARC form signed: declined movement and labor precautions reviewed. Problem list reviewed and updated with the most current plan of care details and appropriate orders placed. Relevant counseling for the gestational age provided. Continue routine care and follow up unless otherwise noted in visit notes/problem list details OB Flowsheet Initial Weight: Not Recorded Date -?-?-?-?-?-?-?-?-?-?-?-?- EGA Weight BP Urine Prot -?-?-?-?-?-?-?-?-?-?-?-?- Glucose FHR FuHt Pres Dilation -?-?-?-?-?-?-?-?-?-?-?-?- Effaced St Visit Note 08/24/23 -?-?-?-?-?-?-?-?-?-?-?-?- 12w 1d 298 lb 4 oz 124/78 -?-?-?-?-?-?-?-?-?-?-?-?- A 163 -?-?-?-?-?-?-?-?-?-?-?-?- B 157 A -?-?-?-?-?-?-?-?-?-?-?-?- B -?-?-?-?-?-?-?-?-?-?-?-?- A -?-?-?-?-?-?-?-?-?-?-?-?- B A MFM on 09/09. Had formal US with [facility]. note given for work. -?-?-?-?-?-?-?-?-?-?-?-?- B declines NIPT at this time. 09/21/23 -?-?-?-?-?-?-?-?-?-?-?-?- 16w 1d 299 lb 8 oz 118/77 -?-?-?-?-?-?-?-?-?-?-?-?- A 144 -?-?-?-?-?-?-?-?-?-?-?-?- B 139 A -?-?-?-?-?-?-?-?-?-?-?-?- B -?-?-?-?-?-?-?-?-?-?-?-?- A -?-?-?-?-?-?-?-?-?-?-?-?- B A Had MFM consult. Confirmed [place] twin boys.will have appt with them q2 weeks. has US and consult on 09/28. Instructed she is high risk and needs to see physicians for remainder of -?-?-?-?-?-?-?-?-?-?-?-?- B 10/20/23 -?-?-?-?-?-?-?-?-?-?-?-?- 20w 2d 308 lb 8 oz 139/84 Nega tive -?-?-?-?-?-?-?-?-?-?-?-?- Negative A 160 -?-?-?-?-?-?-?-?-?-?-?-?- B 135 A -?-?-?-?-?-?-?-?-?-?-?-?- B -?-?-?-?-?-?-?-?-?-?-?-?- A -?-?-?-?-?-?-?-?-?-?-?-?- B A JV- pt feels wel l today. no complaints. is being followed by mfm. order for FOB to go down and get abo rh test. -?-?-?-?-?-?-?-?-?-?-?-?- B pt prefers primary section at 36-37 weeks. 11/18/23 -?-?-?-?-?-?-?-?-?-?-?-?- 24w 3d 319 lb 114/78 Negative -?-?-?-?-?-?-?-?-?-?-?-?- Negative A 145 -?-?-?-?-?-?-?-?-?-?-?-?- B 145 A -?-?-?-?-?-?-?-?-?-?-?-?- B -?-?-?-?-?-?-?-?-?-?-?-?- A -?-?-?-?-?-?-?-?-?-?-?-?- B A SM- no vb lof go od fm no regular ctx -?-?-?-?-?-?-?-?-?-?-?-?- B 12/15/23 -?-?-?-?-?-?-?-?-?-?-?-?- 28w 2d 321 lb 8 oz 126/83 Nega tive -?-?-?-?-?-?-?-?-?-?-?-?- Negative A 160 -?-?-?-?-?-?-?-?-?-?-?-?- B 154 A -?-?-?-?-?-?-?-?-?-?-?-?- B -?-?-?-?-?-?-?-?-?-?-?-?- A -?-?-?-?-?-?-?-?-?-?-?-?- B A JV- GCT pending today. no complaints. feeling lots of movement. next us with mfm is coming up. JV- GCT pending today. no co mplaints. feeling lots of movement. next us with mfm is coming up. no signs of twin/twin transfusion on scan from 12/06. no recommendations for testing yet. -?-?-?-?-?-?-?-?-?-?-?-?- B 12/27/23 -?-?-?-?-?-?-?-?-?-?-?-?- 30w 0d 323 lb 127/84 -?-?-?-?-?-?-?-?-?-?-?-?- A 132 -?-?-?-?-?-?-?-?-?-?-?-?- B 133 A -?-?-?-?-?-?-?-?-?-?-?-?- B -?-?-?-?-?-?-?-?-?-?-?-?- A -?-?-?-?-?-?-?-?-?-?-?-?- B A SM- no vb lof go od fm -?-?-?-?-?-?-?-?-?-?-?-?- B 01/10/24 -?-?-?-?-?-?-?-?-?-?-?-?- 32w 0d 328 lb 127/81 Negative -?-?-?-?-?-?-?-?-?-?-?-?- Negative A 150 -?-?-?-?-?-?-?-?-?-?-?-?- B 140 A -?-?-?-?-?-?-?-?-?-?-?-?- B -?-?-?-?-?-?-?-?-?-?-?-?- A -?-?-?-?-?-?-?-?-?-?-?-?- B A SM- no vb crampi ng no lof good fm x 2 -?-?-?-?-?-?-?-?-?-?-?-?- B 01/17/24 -?-?-?-?-?-?-?-?-?-?-?-?- 33w 0d 331 lb 118/84 Negative -?-?-?-?--?-?-?-?-?-?-?-?- Negative A 122 -?-?-?-?-?-?-?-?-?-?-?-?- B 125 A -?-?-?-?-?-?-?-?-?-?-?-?- B -?-?-?-?-?-?-?-?-?-?-?-?- A -?-?--?-?-?-?-?-?-?-?-?-?- B A KW- no vb/lof/ct x. good fm -?-?-?-?-?-?-?-?-?-?-?-?- B LARC today. has MFM appt yodit orrow. 01/27/24 -?-?-?-?-?-?-?-?-?-?-?-?- 34w 3d 335 lb 2 oz 107/76 Nega tive -?-?-?-?-?-?-?-?-?-?-?-?- Negative A 146 -?-?-?-?-?-?-?-?-?-?-?-?- B 157 A Cephalic -?-?-?-?-?-?-?-?-?-?-?-?- B [place] -?-?-?-?-?-?-?-?-?-?-?-?- A -?-?-?-?-?-?-?-?-?-?-?-?- B A JV- no lof, vagi nal bleeding, or dec fm. mfm consult on chart. no ttts. plan section for 02/07 -?-?-?-?-?-?-?-?-?-?-?-?- B 01/31/24 -?-?-?-?-?-?-?-?-?-?-?-?- 35w 0d 336 lb 131/75 Trace A -?-?-?-?-?-?-?-?-?-?-?-?- Negative A 140 -?-?-?-?-?-?--?-?-?-?-?-?- B 150 A Cephalic -?-?-?-?-?-?-?-?-?-?-?-?- B Cephalic -?-?-?-?-?-?-?-?-?-?-?-?- A -?-?-?-?-?-?-?-?-?-?-?-?- B A SM- no vb lof go od fm x 2 will give steroid cours today and tomorrow. MFM appointment tomorrow. consent signed -?-?-?-?-?-?-?-?-?-?-?-?- B ROS Constitutional Constitutional: Reports systems reviewed and no addt'l complaints, except as documented Eyes Eyes: Denies change in vision ENT HEENT: Reports systems reviewed and no addt'l complaints, except as documented; Denies headache(s) Cardiovascular Cardiovascular: Reports systems reviewed and no addt'l complaints, except as documented; Denies chest pain or dyspnea Respiratory/Chest Respiratory/Chest: Reports systems reviewed and no addt'l complaints, except as documented Gastrointestinal Gastrointestinal: Reports systems reviewed and no addt'l complaints, except as documented; Denies abdominal pain Genitourinary Genitourinary: Reports systems reviewed and no addt'l complaints, except as documented, contractions Details: present (irregular) and movement Details: present; Denies dysuria or genital lesions Musculoskeletal Musculoskeletal: Reports systems reviewed and no addt'l complaints, except as documented Neurologic Neurologic: Reports systems reviewed and no addt'l complaints, except as documented Endocrine Endocrinology: Reports systems reviewed and no addt'l complaints, except as documented Vital Signs Vital Signs Vital Signs: 02/07/24 11:33 02/07/24 12:00 Temperature 97.3 F L 97.3 F L Temperature Source Temporal Pulse Rate 90 90 Respiratory Rate 16 16 Blood Pressure 138/86 H 138/86 H Blood Pressure Mean 103 Blood Pressure Source Monitor Blood Pressure Position Semi-Fowlers Blood Pressure Location Left Arm Pulse Ox 99 99 Oxygen Delivery Method Room Air Weight Weight: 336 lb Body Mass Index (BMI) 59.5 Physical Exam Const alert, oriented x3, no apparent distress and healthy appearing HEENT normocephalic and moist oral mucous membranes Head and Scalp: atraumatic Neck full ROM, no lymphadenopathy, supple and thyroid normal General: trachea midline Lymph Lymphatic: no lymphadenopathy noted Chest inspection of chest normal Resp normal respiratory effort Cardio regular rate GI normal to inspection, nondistended, normoactive bowel sounds, soft to palpation and non-tender Inspection: gravid Extremity normal to inspection General Extremity: Negative for edema Skin no rashes or lesions noted Neuro no focal motor deficits and deep tendon reflexes 2+ bilaterally Motor Exam: strength 5/5 throughout and clonus absent Psych mental status grossly normal Labs Labs Labs: Blood Type B NEGATIVE Antibody Screen NEGATIVE Hct 39.0 % (37-47) Hgb 12.8 g/dL (12.0-15.0) Obstetrics Ultrasound Syphilis Total Ab Non-reactive Rubella IgG Antibody Reactive (Nonreactive) Hep Bs Antigen Non-Reactive (Nonreactive) Hepatitis C Antibody Non-Reactive (Nonreactive) Chlamydia DNA (NILS) Negative (Negative) N.gonorrhoeae DNA (NILS) Negative (Negative) HIV 1&2 Antibody Non-Reactive (Nonreactive) Glucose 1 Hr 50 gm 154 mg/dL (70-140) H Gest Glucose Tolerance MG/DL Rhogam given: No Assessment & Plan (1) Abnormal glucose affecting : COMMENT: passed 3 hour gct (2) Monochorionic diamniotic twin gestation: COMMENT: Primary csection 02/07 with SM, fu per MFM to evaluate for TTTS:will have US Q 2 wk with MFM. Start low dose ASA yamilex franchesca (boys) (3) Rh negative state in antepartum period: COMMENT: rhogam 28 wk, prn and pp, (FOB is O+ blood type). Rhogam given 12/15/23 (4) Anxiety and depression: (5) Marijuana abuse: COMMENT: Tox with NOB-positive. Collected on 10/19 (6) : QUALIFIERS: Weeks of gestation: 34 weeks Qualified Code(s): Z3A.34 - 34 weeks gestation of COMMENT: declines genetic & carrier testing (7) Supervision of high-risk : COMMENT: RPR, , ENEDELIA 03/06/24, boys PC Chava, BF Beto (8) FH: congenital heart problem: COMMENT: sister born with aortic stenosis. echo w MFM scheduled at 24 wk (9) H/O hemorrhage, currently : COMMENT: no transfusion required. (10) Morbid obesity with BMI of 50.0-59.9, adult: COMMENT: A1C with NOB PLAN: Plan proceed with primary LTCS
--- NOTE | 2024-02-07 13:34 | OP.PCM_ITS ---
Assessment & Plan (1) : QUALIFIERS: Weeks of gestation: 34 weeks Qualified Code(s): Z3A.34 - 34 weeks gestation of COMMENT: declines genetic & carrier testing (2) Supervision of high-risk : COMMENT: RPR, , ENEDELIA 03/06/24, boys PC VINICIO Larsen (3) H/O hemorrhage, currently : COMMENT: no transfusion required. (4) FH: congenital heart problem: COMMENT: sister born with aortic stenosis. echo w MFM scheduled at 24 wk (5) Morbid obesity with BMI of 50.0-59.9, adult: COMMENT: A1C with NOB (6) Rh negative state in antepartum period: COMMENT: rhogam 28 wk, prn and pp, (FOB is O+ blood type). Rhogam given 12/15/23 (7) Monochorionic diamniotic twin gestation: COMMENT: Primary csection 02/07 with SM, fu per MFM to evaluate for TTTS:will have US Q 2 wk with MFM. Start low dose ASA franchesca kaminski (boys) (8) Abnormal glucose affecting : COMMENT: passed 3 hour gct (9) Anxiety and depression: (10) Marijuana abuse: COMMENT: Tox with NOB-positive. Collected on 10/19 (11) Former smoker: Maternal Data Information ENEDELIA Calculator Estimated Delivery Date Method Current WG Current Estimate 03/06/24 Ultrasound #1 36w 0d # 2 Final ENEDELIA Source: LMP Details Operative Information Date of Procedure: 02/07/24 Pre-Operative Diagnosis: mono di twins Post-Operative Diagnosis: same plus left ovarian cyst Indications Narrative: Surgeon: Rhea Driscoll MD Classification: Scheduled Procedure Type: low transverse (and left ovarian cystectomy) Type of Anesthesia: Spinal Special Medications: none Antibiotic Given: Ancef 2 grams IV x1 Drain: Salazar to straight drain Estimated Blood Loss: 700 Fluids Replaced: crystalloid Procedure Start Time: 12:06 Procedure Stop Time: 13:21 Findings Description of Procedure: The patient is a 23 yo @ 36 weeks presented for repeat . Spinal anesthesia was placed without difficulty. Salazar catheter was placed. The patient was placed in the dorsal supine position with leftward tilt. Patient was prepped and draped in the normal sterile fashion. Pfannenstiel skin incision was made with the scalpel and carried through to the underlying layer of fascia with the scalpel. Fascia was nicked in the midline and the incision extended laterally. The rectus bellies were dissected off superiorly and inferiorly with out complication both sharply and bluntly. The peritoneum was entered digitally. The incision was stretched and a low transverse uterine incision was made with the scalpel. The 's head was delivered atraumatically followed by the anterior and posterior shoulders without complication the rest of the infant delivered. The cord was clamped and cut and the was handed off to awaiting nurse. The placenta was delivered spontaneously immediately following and was noted to be intact and have a three- vessel cord. The uterus was exteriorized cleared of all clots and debris, and the incision was closed in a single layer closure using #1 Monocryl. The ovaries and fallopian tubes were checked and a large cystic structure was coming off the left ovary. this was opened up and dissected out, removed, and sutured at the based with 4-0 monocryl for hemostasis. tubal integrity not compromised. The uterus was returned to the maternal abdomen and gutters were cleared of all clots and debris. The peritoneum was closed with 3-0 Monocryl in a running fashion. Fascia was closed with 0 PDS in a running fashion. Subcutaneous tissue was copiously irrigated and the skin was closed with 3-0 Monocryl in a subcuticular fashion. Mepilex dressing was applied without complication. Patient was taken to recovery in stable condition. Amniotic Membrane Rupture Type: Artificial Amniotic Fluid Description: Clear Placenta Disposition: [facility] Cord Vessel Description: 3 Vessels Delayed Cord Clamping: Yes Complications Risks of Surgery Discussed w/Patient: Bleeding, Infection, Need for Future C- Sections and Injury to surrounding structure(s) including bowel and bladder Vaginal Delivery Complication Complications: None Admit VTE Documentation VTE Present on Admission: No VTE Mechan Device Prophylaxis: SCD's Procedures Urinary/Genital 52xxx-59xxx: 17386 delivery+PP Care([facility])
[2024-02-07 13:51] LABS: Pathology Specimen OB SEE PATHOLOGY REPORT
[2024-02-07] MEDS: Ketorolac 30 MG/ML Syringe IV ×2 (14:05→19:25)
[2024-02-07] MEDS: Oxytocin 15 Units/NS 250ml 15 UNITS/250 ML IV.SOLN 83 UNITS IV (14:05)
[2024-02-07] MEDS: HYDROmorphone 1 MG/ML Syringe IV ×2 (15:16→23:15)
[2024-02-07] MEDS: Lactated Ringers 1,000 ML 100 ML IV (16:21)
[2024-02-07] MEDS: 0.9% Saline Lock 10 ML Syringe IV ×2 (19:25→23:16)
[2024-02-08] MEDS: Ketorolac 30 MG/ML Syringe IV ×2 (01:45→08:06)
[2024-02-08] MEDS: Enoxaparin 40 MG/0.4 ML Syringe SC ×2 (01:45→13:26)
[2024-02-08 04:03] VITALS: BP 114/73; PULSE 93; RESP 16; TEMP 36.3; O2SAT 96
[2024-02-08] MEDS: Acetaminophen 500 MG Tablet 1000 MG PO ×4 (05:38→23:25)
[2024-02-08 05:55] LABS: Hematocrit 37.7 % (37-47); Hemoglobin 12.3 g/dL (12.0-15.0); Mean Corp Hgb Conc 32.6 g/dL (32-36); Mean Corpuscular Hgb 28.5 pg (27.0-32.0); Mean Corpuscular Volume 87.5 fL (81-99); Platelet Count 185 K/mm3 (150-450); RBC Distribution Width CV 12.4 % (11.6-14.6); RBC Distribution Width SD 39.7 fl (35.1-43.9); Red Blood Count 4.31 M/mm3 (4.2-5.4); White Blood Count 20.5 K/mm3 (4.4-11.0)
--- NOTE | 2024-02-08 07:13 | PCM.DC ---
Discharge Instructions Diet Discharge Diet: No restrictions Activity Discharge Activity: May Not Drive (for 2 weeks or while taking narcotic pain medications.), May Shower and May Take a Tub Bath (in 7 days) May shower in (days): 0 May resume sexual activity in: 4-6 weeks Weight Bearing Status: Full weight bearing Lifting Restrictions: 20 pounds Dressing / Incision Call your doctor if your incision/area has: Continuous Slow Oozing, Sudden Increased Bleeding, Increased Pain/ Swelling, Increased Redness and Foul Smelling Discharge Call your doctor if you observe: Fever of 101 or Higher and Using more than 1 pad per hour (for 2 hours) Suture Line Care: Avoid Pulling/Pushing and Avoid Pinching/Bending Cleanse incision/area with: Soap & Water and Keep Dressing Clean & Dry Follow Up Care Please Follow Up With: Rhea Driscoll MD When: Call [phone] to make an appointment for an incision check in 1-2 weeks. Test Results: Test results from this visit will be discussed in further detail at your follow-up appointment, if applicable. Discharge Plan Admission Admit Date/Time: 02/07/24 09:30 Attending Provider: Rhea Driscoll Primary Care Provider: Humza Hamilton Discharge Orders/Prescriptions Prescriptions: New oxycodone-acetaminophen [Percocet] 5-325 mg tablet 1 tab PO Q6H PRN (Reason: pain) 7 Days Qty: 20 0RF naproxen 500 mg tablet 500 mg PO BID PRN PRN (Reason: Pain) Qty: 30 1RF No Action PNV-[place] 28-1-300 mg capsule PO folic acid 1 mg tablet 1 mg PO DAILY aspirin 81 mg tablet,delayed release (DR/EC) 81 mg PO DAILY Referrals / Follow Up: Humza Hamilton MD [Primary Care Provider] - Disposition Disposition (needs filled in before D/C Order can be placed): Home, Self Care
[2024-02-08 08:00] VITALS: BP 132/76; PULSE 82; RESP 16; TEMP 36.7; O2SAT 95
--- NOTE | 2024-02-08 08:02 | PN.OBGYN_ITS ---
Subjective Subjective Patient doing well without complaints. Tolerating PO. Ambulating and voiding without difficulty. Feeding well. Denies chest pain, shortness of breath, calf pain/swelling, fevers, chills, lightheadedness. Objective Data Objective Data Vital Signs: Vital Signs Temp Pulse Resp BP Pulse Ox O2 Del Method 97.4 F L 93 16 114/73 96 Room Air 02/08/24 04:03 02/08/24 04:03 02/08/24 04:03 02/08/24 04:03 02/08/24 04:03 02/08/24 04:03 Oxygen Delivery Method Room Air Weight: 336 lb Body Mass Index (BMI) 59.5 Intake & Output: Intake and Output for Last 24 Hours 02/06/24 02/07/24 02/08/24 23:59 23:59 23:59 Intake Total 3372.5 / 3372.5 1000 / 1000 Output Total 2100 / 2100 600 / 600 Balance 1272.5 / 1272.5 400 / 400 Lab / Micro Data 02/08/24 05:45 Labs: Laboratory Results - last 24 hr 02/07/24 10:45: WBC 16.6 H, RBC 4.47, Hgb 12.8, Hct 39.0, MCV 87.2, MCH 28.6, MCHC 32.8, RDW Std Deviation 39.5, RDW Coeff of Aye 12.4, Plt Count 180, MPV 9.0, Immature Gran % (Auto) 1.600 H, Neut % (Auto) 74.0 H, Lymph % (Auto) 14.9 L , [place] % (Auto) 8.2, Eos % (Auto) 0.9, Baso % (Auto) 0.4, Absolute Neuts (auto) 12.3 H, Absolute Lymphs (auto) 2.48, Nucleated RBC % 0, Syphilis Total Ab Non- reactive, Blood Type B NEGATIVE, Antibody Screen NEGATIVE 02/07/24 17:20: Screen NEGATIVE, Baby's Blood Type B POSITIVE, Baby's MARC NEGATIVE 02/08/24 05:45: WBC 20.5 H, RBC 4.31, Hgb 12.3, Hct 37.7, MCV 87.5, MCH 28.5, MCHC 32.6, RDW Std Deviation 39.7, RDW Coeff of Aye 12.4, Plt Count 185, MPV 9.0 Physical Exam Const alert and oriented x3 General Appearance: comfortable HEENT normocephalic Eyes PERRL Neck full ROM Resp normal respiratory effort GI soft to palpation GI Narrative: FF below U. Dressing dry and intact Palpation: tender other (appropriately) Assessment & Plan (1) delivery delivered: COMMENT: LTCS boys 36 mono di twins Sha Manning (2) Rh negative state in antepartum period: COMMENT: rhogam 28 wk, prn and pp, (FOB is O+ blood type). Rhogam given 12/15/23 (3) Anxiety and depression: PLAN: Plan s/p LTCS PPD # 1 1. routine post care 2. bottle feeding- support given 3. rh negative 4. rubella immune
[2024-02-08] MEDS: Rho(D) Immune Globulin 300 MCG (1500 Unit) Syringe IV (08:35)
[2024-02-08] MEDS: 0.9% Saline Lock 10 ML Syringe IV (08:36)
[2024-02-08] MEDS: Senna/Docusate Sodium 1 Tablet PO (11:39)
[2024-02-08 11:43] VITALS: BP 135/88; PULSE 91; RESP 16; TEMP 36.6; O2SAT 95
--- NOTE | 2024-02-08 11:53 | OP.PCM_ITS ---
Assessment & Plan (1) delivery delivered: COMMENT: LTCS boys 36 mono di twins Sha Kaminski (2) Abnormal glucose affecting : COMMENT: passed 3 hour gct (3) Monochorionic diamniotic twin gestation: COMMENT: Primary csection 02/07 with SM, fu per MFM to evaluate for TTTS:will have US Q 2 wk with MFM. Start low dose ASA sha kaminski (boys) (4) Rh negative state in antepartum period: COMMENT: rhogam 28 wk, prn and pp, (FOB is O+ blood type). Rhogam given 12/15/23 (5) Morbid obesity with BMI of 50.0-59.9, adult: COMMENT: A1C with NOB (6) FH: congenital heart problem: COMMENT: sister born with aortic stenosis. echo w MFM scheduled at 24 wk (7) H/O hemorrhage, currently : COMMENT: no transfusion required. (8) Supervision of high-risk : COMMENT: RPSunshine, , ENEDELIA 03/06/24, VINICIO Bonilla (9) : QUALIFIERS: Weeks of gestation: 34 weeks Qualified Code(s): Z3A.34 - 34 weeks gestation of COMMENT: declines genetic & carrier testing (10) Former smoker: (11) Marijuana abuse: COMMENT: Tox with NOB-positive. Collected on 10/19 (12) Anxiety and depression: Maternal Data Information ENEDELIA Calculator Estimated Delivery Date Method Current WG Current Estimate 03/06/24 Ultrasound #1 36w 1d # 2 Final ENEDELIA Source: LMP Details Operative Information Date of Procedure: 02/07/24 Pre-Operative Diagnosis: mono di twins 36 weeks Post-Operative Diagnosis: same plus left ovarian cyst Indications for : Multiple Gestation Indications Narrative: Surgeon: Rhea Driscoll MD Classification: Scheduled (primary low transverse section) Procedure Type: low transverse (and left ovarian cystectomy) production line solderer #1: Jacquelin García Type of Anesthesia: Spinal Special Medications: none Drain: Salazar to straight drain Estimated Blood Loss: 700 Fluids Replaced: crystalloid Procedure Start Time: 12:03 Procedure Stop Time: 13:26 Findings Description of Procedure: Spinal anesthesia was placed without difficulty. Salazar catheter was placed. The patient was placed in the dorsal supine position with leftward tilt. Patient was prepped and draped in the normal sterile fashion. Pfannenstiel skin incision was made with the scalpel and carried through to the underlying layer of fascia with the scalpel. Fascia was nicked in the midline and the incision extended laterally. The rectus bellies were dissected off superiorly and inferiorly with out complication both sharply and bluntly. The peritoneum was entered digitally. The incision was stretched and a low transverse uterine incision was made with the scalpel. The infant's head was delivered atraumatically followed by the anterior and posterior shoulders without complication the rest of the infant delivered. The cord was clamped and cut and the was handed off to awaiting nurse. second membranes were ruptured the feet delivered, legs, The buttox was delivered atraumatically, followed by the body and the arms which were swept anteriorly and delivered. Gentle traction was placed on the mentum to flex the head which was delivered without complication. The placenta was delivered spontaneously immediately following and was noted to be intact and have a three-vessel cord. The uterus was exteriorized cleared of all clots and debris, and the incision was closed in a single layer closure using #1 Monocryl. The left ovary was noted to have a cyst on it which was removed after being opened of clear fluid and maintaining good integrity of the fimbria. stitched at the base with 4-0 monocryl. The uterus was returned to the maternal abdomen and gutters were cleared of all clots and debris. The peritoneum was closed with 3-0 Monocryl in a running fashion. Fascia was closed with 0 PDS in a running fashion. Subcutaneous tissue was copiously irrigated and the skin was closed with 3-0 Monocryl in a subcuticular fashion. Mepilex dressing was applied without complication. Patient was taken to recovery in stable condition. Amniotic Membrane Rupture Type: Artificial Amniotic Fluid Description: Clear Placenta Disposition: [facility] Cord Vessel Description: 3 Vessels Delayed Cord Clamping: No Complications Risks of Surgery Discussed w/Patient: Bleeding, Infection, Need for Future C- Sections and Injury to surrounding structure(s) including bowel and bladder Vaginal Delivery Complication Complications: None Admit VTE Documentation VTE Present on Admission: No VTE Mechan Device Prophylaxis: SCD's Multi Select Codes Urinary/Genital Urinary/Genital CPT Codes: 37154 Ovarian cystectomy laparotomy (at time of c section) and 35963 delivery+PP Care([facility]) (twins)
[2024-02-08] MEDS: Naproxen 500 MG Tablet PO ×2 (13:26→21:13)
[2024-02-08 18:06] VITALS: BP 138/92; PULSE 92; RESP 15; TEMP 36.1; O2SAT 95
[2024-02-08 20:34] VITALS: BP 122/65; PULSE 80; RESP 18; TEMP 36.4; O2SAT 96
[2024-02-09 02:19] VITALS: BP 108/73; PULSE 82; RESP 16; TEMP 36.6
[2024-02-09] MEDS: Enoxaparin 40 MG/0.4 ML Syringe SC ×2 (02:21→14:10)
[2024-02-09] MEDS: Acetaminophen 500 MG Tablet 1000 MG PO ×3 (05:44→18:26)
[2024-02-09] MEDS: Naproxen 500 MG Tablet PO ×3 (05:44→21:47)
--- NOTE | 2024-02-09 07:44 | PN.OBGYN_ITS ---
Subjective Subjective Patient doing well without complaints. Tolerating PO. Ambulating and voiding without difficulty. Feeding well. Denies chest pain, shortness of breath, calf pain/swelling, fevers, chills, lightheadedness. Objective Data Objective Data Vital Signs: Vital Signs Temp Pulse Resp BP Pulse Ox O2 Del Method 97.9 F 82 16 108/73 96 Room Air 02/09/24 02:19 02/09/24 02:19 02/09/24 02:19 02/09/24 02:19 02/08/24 20:34 02/09/24 02:19 Oxygen Delivery Method Room Air Weight: 336 lb Body Mass Index (BMI) 59.5 Intake & Output: Intake and Output for Last 24 Hours 02/07/24 02/08/24 02/09/24 23:59 23:59 23:59 Intake Total 3372.5 / 3372.5 1000 / 1000 Output Total 2100 / 2100 850 / 850 Balance 1272.5 / 1272.5 150 / 150 Lab / Micro Data Attestation: I reviewed the patient's lab results. 02/08/24 05:45 ROS Constitutional Constitutional: Reports systems reviewed and no addt'l complaints, except as documented; Denies anorexia or headache(s) Cardiovascular Cardiovascular: Reports systems reviewed and no addt'l complaints, except as documented; Denies dizziness, dyspnea, nausea or tachypnea Respiratory/Chest Respiratory/Chest: Reports systems reviewed and no addt'l complaints, except as documented; Denies cough, dyspnea, shortness of breath at rest or tachypnea Gastrointestinal Gastrointestinal: Reports systems reviewed and no addt'l complaints, except as documented; Denies abdominal pain, constipation or nausea Genitourinary Genitourinary: Reports systems reviewed and no addt'l complaints, except as documented; Denies burning urination, difficulty urinating, dysuria, urinary frequency or urinary incontinence Musculoskeletal Musculoskeletal: Reports systems reviewed and no addt'l complaints, except as documented Integumentary Integumentary: Reports systems reviewed and no addt'l complaints, except as documented Neurologic Neurologic: Reports systems reviewed and no addt'l complaints, except as documented; Denies abnormal speech, dizziness or headache(s) Psychiatric Psychiatric: Reports systems reviewed and no addt'l complaints, except as documented Endocrine Endocrinology: Reports systems reviewed and no addt'l complaints, except as documented Hematologic/Lymphatic Hematologic/Lymphatic: Reports systems reviewed and no addt'l complaints, except as documented Physical Exam Const alert, oriented x3 and no apparent distress Neck full ROM Resp normal respiratory effort, normal air movement and no retractions Effort and Inspection: able to speak in complete sentences and symmetric chest movement GI soft to palpation Inspection: incision intact Bladder / Kidney Exam: bladder normal to palpation Uterus Palpation: uterus fundus Extremity normal to inspection and full ROM Psych mental status grossly normal, thought process normal and cooperative Assessment & Plan (1) delivery delivered: COMMENT: LTCS boys 36 mono di twins Franchesca Manning left ovarian cystectomy PLAN: s/p LTCS PPD # 1 1. routine post care 2. breast feeding- support given 3. rh positive 4. rubella immune (2) Abnormal glucose affecting : COMMENT: passed 3 hour gct (3) Monochorionic diamniotic twin gestation: COMMENT: Primary csection 02/07 with , fu per MFM to evaluate for TTTS:will have US Q 2 wk with MFM. Start low dose ASA franchesca manning (boys) (4) Rh negative state in antepartum period: COMMENT: rhogam 28 wk, prn and pp, (FOB is O+ blood type). Rhogam given 12/15/23 (5) Morbid obesity with BMI of 50.0-59.9, adult: COMMENT: A1C with NOB (6) FH: congenital heart problem: COMMENT: sister born with aortic stenosis. echo w MFM scheduled at 24 wk (7) H/O hemorrhage, currently : COMMENT: no transfusion required. (8) Supervision of high-risk : COMMENT: RPR, , ENEDELIA 03/06/24, boys VINICIO Ramos (9) : QUALIFIERS: Weeks of gestation: 34 weeks Qualified Code(s): Z 3A.34 - 34 weeks gestation of COMMENT: declines genetic & carrier testing (10) Former smoker: (11) Marijuana abuse: COMMENT: Tox with NOB-positive. Collected on 10/19 (12) Anxiety and depression: Charges/Coding Multi Select Codes Urinary/Genital Urinary/Genital CPT Codes: No Charge
[2024-02-09 08:55] VITALS: BP 122/73; PULSE 88; RESP 16; TEMP 36.4; O2SAT 98
[2024-02-09] MEDS: Senna/Docusate Sodium 1 Tablet PO (11:25)
--- NOTE | 2024-02-09 12:42 | CASEMGMT ---
Social Work Assessment Labor and Delivery Unit Patient Address: [address] [place] [address] Phone number: [phone] Date of Referral: 02/07/24 Time of Referral:? 105 Referred By: Dr. Driscoll Date of Intervention: ?? Time of Intervention:? 944 Reason for Referral:? pt answered that her mother was an alcoholic, but has recovered from alcohol Sw completed chart review and acknowledges social work consult due to family history of alcoholism. Sw presented to bedside and introduced self to mother of baby (TYLER- Rena) and father of baby (FORandee- Beto). Sw explained reason for sw involvement and completed psychosocial assessment. History obtained from: medical records, MOB and FOB Household composition: Currently residing in the family home is RADHA SCOTT, their 1 year old daughter- Chava and twins when ready for discharge. Parents deny any issues or concerns with housing at this time. Patient's parent/guardian status:? ?TYLER states that she and RADHA met online and have been together for four years, they are and twins are second and third child for both of them. NO issues or concerns reported of domestic violence or intimate partner violence. Medical History: ?TYLER is 23 year old female who is 2, para 1- now 3 following labor and delivery. TYLER received routine care during with [place]. TYLER presented to hospital for scheduled due to twin delivery on 02/07/24. Baby A: Roland- was born weighing 5lb 3oz with apgrs of 9 and 9 at one and five minutes of life, respectfully. Baby B: Sha- was born weighing 4lb 12oz with apgars of 9 and 9 at one and five minutes of life, respectfully. TYLER is bottle feeding baby's and reports that they will be followed by Dr. Kraft for pediatrics. Educational Status:? Both parents graduated from high school and deny any issues or concerns with reading, learning or comprehension. Financial Status: RADHA is gainfully employed outside of the home working at [email or web address]. Supplies:?? Parents report that they have obtained all necessary baby items, including: car seat, safe sleep space, clothes, diapers and wipes. Childcare/Caregiver(s):? TYLER states that she will be the primary caregiver to baby's along with RADHA when he is not working. Transportation:?? No barriers to transportation, both parents have reliable means of transportation at this time. Programs/Agencies Involved: ???TYLER is connected to insurance through [employer] ([employer]) and is aware that she needs to call to ensure both babies are added within thirty days. TYLER is also connected to WIC. Help Me Grow referral offered and recommended, however parents deny at this time. Children Services/Legal Issues:?No history of children services involvement. Sw made referral to [facility] as a result of TYLER testing positive for THC during (08/24/23). Sw spoke to hotline screener, [place]. ?? Behavioral Health Issues: ??Mental Health History:??FOB states that he has been diagnosed with ADHD. MOB states that she has been diagnosed with anxiety and depression. She denies experiencing any following the delivery of her first baby. TYLER is not prescribed medications. TYLER states that her mental health symptoms are managed and she does not struggle on a consistent basis. ? Substance Use History:?TYLER initially denied using any substances during , until this speech writer informed TYLER of her positive toxicology result on 08/24/23 which was positive for THC. TYLER then stated that she did smoke marijuana recreationally until she discovered that she was . TYLER denies using THC once she learned of her . ? Family History:??TYLER has a parent who was an alcoholic, but is in recovery. FOB states that he also has several family members who struggled with alcoholism. FOB states that one of those family member's was his father, however he is now. FOB and MOB state that they do not drink alcohol. Sw expressed the importance of being aware of their genetic history and not seeking comfort from drugs or alcohol if they feel they are struggling with their mental health. Sw brainstormed healthy coping skills, parents expressed understanding. ??? Drug Screens: TYLER positive for THC on 08/24/23, negative for all substances at time of admission. [place] baby's urine toxicology was negative for all substances, meconium still pending. ?? Family/Social Stressors:? Parents deny any issues, concerns or stressors at this time. Support Systems: TYLER states that her mom, step mom and paternal grandma are all supportive. Depression/Shaken Baby/Safe Sleeping:? Sw educated parents on signs and symptoms of mood and anxiety disorders to be on the lookout for during this period. Sw encouraged parents to seek support from a mental health professional if either of them feel as though they are struggling. Parents express understanding. FOB stated that if MOB were to struggle he would be able to recognize that and would know how to help and support her. Sw educated parents on shaken baby prevention and ABCs of safe sleep. Parents express understanding. ASSESSMENT:? MOB and twins admitted following labor and delivery. MOB and FOB were both observed to be actively caring/ feeding newborns while completing assessment with this speech writer. Parents also observed to have a supportive relationship with one another. MOB with mental health history positive for anxiety and depression, not on medication but aware of signs and symptoms to be on the lookout for during this time frame. Parents have obtained double all the necessary baby supplies and have natural supports in place. MOB tested positive for THC during and as a result a referral was made to [facility]. Should they open up the referral they will follow up with parents once discharged to home. No immediate concerns at this time. Safe Plan of Care for infant related to substance use:? MOB states that she does not have any current plans or intentions of using now that baby has been born. Sw educated MOB to abstain from any type of substance. PLAN:? Referral made to Children Services. MOB and baby to be discharged when medically ready. Handouts and information provided to parents on: mood and anxiety disorders, safe sleep, shaken baby prevention, [facility] and [facility] (referral declined at this time) ?No other services requested or indicated. Jaime Cano, LOCOMOTIVE MECHANIC APPRENTICE, EXTRACTOR OPERATOR
[2024-02-09 13:44] VITALS: BP 126/76; PULSE 105; RESP 16; TEMP 36.7; O2SAT 98
[2024-02-09 19:33] VITALS: BP 118/77; PULSE 118; RESP 16; TEMP 36.7; O2SAT 96
[2024-02-10] MEDS: Enoxaparin 40 MG/0.4 ML Syringe SC (01:11)
[2024-02-10] MEDS: Acetaminophen 500 MG Tablet 1000 MG PO ×2 (01:11→06:32)
[2024-02-10 01:14] VITALS: BP 101/69; PULSE 91; RESP 16; TEMP 36.8; O2SAT 97
[2024-02-10] MEDS: Naproxen 500 MG Tablet PO (06:32)
--- NOTE | 2024-02-10 06:53 | PN.OBGYN_ITS ---
Subjective Subjective Patient doing well without complaints. Tolerating PO. Ambulating and voiding without difficulty. infants feeding well. Denies chest pain, shortness of breath, calf pain/swelling, fevers, chills, lightheadedness. Objective Data Objective Data Vital Signs: Vital Signs Temp Pulse Resp BP Pulse Ox O2 Del Method 98.2 F 91 16 101/69 97 Room Air 02/10/24 01:14 02/10/24 01:14 02/10/24 01:14 02/10/24 01:14 02/10/24 01:14 02/10/24 01:14 Oxygen Delivery Method Room Air Weight: 336 lb Body Mass Index (BMI) 59.5 Intake & Output: Intake and Output for Last 24 Hours 02/08/24 02/09/24 02/10/24 23:59 23:59 23:59 Intake Total 1000 / 1000 Output Total 850 / 850 Balance 150 / 150 Lab / Micro Data 02/08/24 05:45 ROS Constitutional Constitutional: Reports systems reviewed and no addt'l complaints, except as documented Cardiovascular Cardiovascular: Reports systems reviewed and no addt'l complaints, except as documented Respiratory/Chest Respiratory/Chest: Reports systems reviewed and no addt'l complaints, except as documented Gastrointestinal Gastrointestinal: Reports systems reviewed and no addt'l complaints, except as documented Physical Exam Const alert, oriented x3 and no apparent distress HEENT Head and Scalp: atraumatic Resp normal respiratory effort GI soft to palpation and non-tender Inspection: incision intact, healing well and drainage (none) Bimanual Exam - Vag & Uterus: uterus non-tender Uterus Palpation: uterus fundus firm (below Umbilicus) Assessment & Plan (1) delivery delivered: COMMENT: LTCS boys 36 mono di twins Sha Manning left ovarian cystectomy PLAN: s/p LTCS PPD # 2 1. routine post care 2. breast feeding- support given 3. rh positive 4. rubella immune (2) Abnormal glucose affecting : COMMENT: passed 3 hour gct (3) Monochorionic diamniotic twin gestation: COMMENT: Primary csection 02/07 with SM, fu per MFM to evaluate for TTTS:will have US Q 2 wk with MFM. Start low dose ASA sha manning (boys) (4) Rh negative state in antepartum period: COMMENT: rhogam 28 wk, prn and pp, (FOB is O+ blood type). Rhogam given 12/15/23 (5) Morbid obesity with BMI of 50.0-59.9, adult: COMMENT: A1C with NOB (6) FH: congenital heart problem: COMMENT: sister born with aortic stenosis. echo w MFM scheduled at 24 wk (7) H/O hemorrhage, currently : COMMENT: no transfusion required. (8) Supervision of high-risk : COMMENT: RPR, , ENEDELIA 03/06/24, boys PC Chava, BF Beto (9) : QUALIFIERS: Weeks of gestation: 34 weeks Qualified Code(s): Z 3A.34 - 34 weeks gestation of COMMENT: declines genetic & carrier testing (10) Former smoker: (11) Marijuana abuse: COMMENT: Tox with NOB-positive. Collected on 10/19 (12) Anxiety and depression:
--- NOTE | 2024-02-10 06:54 | PCM.DC.SUM ---
Providers Date of Admission: 02/07/24 Primary Care Physician: Dr. Humza Hamilton MD Reason For Visit: PRIMARY Diagnosis Discharge Diagnosis (1) delivery delivered: Status: Acute Code(s): O82 - Encounter for delivery without indication Plan: s/p LTCS PPD # 2 1. routine post care 2. breast feeding- support given 3. rh positive 4. rubella immune (2) Abnormal glucose affecting : Status: Acute Code(s): O99.810 - Abnormal glucose complicating (3) Monochorionic diamniotic twin gestation: Status: Acute Code(s): O30.039 - Twin , monochorionic/diamniotic, unspecified trimester (4) Rh negative state in antepartum period: Status: Acute Code(s): O26.899 - Other specified related conditions, unspecified trimester; Z67.91 - Unspecified blood type, Rh negative (5) Morbid obesity with BMI of 50.0-59.9, adult: Status: Acute Code(s): E66.01 - Morbid (severe) obesity due to excess calories; Z68.43 - Body mass index [BMI] 50.0-59.9, adult (6) FH: congenital heart problem: Status: Acute Code(s): Z82.79 - Family history of other congenital malformations, deformations and chromosomal abnormalities (7) H/O hemorrhage, currently : Status: Acute Code(s): O09.299 - Supervision of with other poor reproductive or obstetric history, unspecified trimester (8) Supervision of high-risk : Status: Acute Code(s): O09.90 - Supervision of high risk , unspecified, unspecified trimester (9) : Status: Acute Code(s): Z34.90 - Encounter for supervision of normal , unspecified, unspecified trimester Qualifiers: Weeks of gestation: 34 weeks Qualified Code(s): Z3A.34 - 34 weeks gestation of (10) Former smoker: Status: Acute Code(s): Z87.891 - Personal history of nicotine dependence (11) Marijuana abuse: Status: Acute Code(s): F12.10 - Cannabis abuse, uncomplicated (12) Anxiety and depression: Status: Acute Code(s): F41.9 - Anxiety disorder, unspecified; F32.A - Depression, unspecified Medications at Discharge Home Medications multivit-min no.71-iron fum 28 mg-folate no.1 1 mg-dha 300 mg capsule (PNV-Maceo) cap PO 08/17/23 aspirin 81 mg tablet,delayed release 81 mg PO DAILY 10/20/23 folic acid 1 mg tablet 1 mg PO DAILY 10/20/23 naproxen 500 mg tablet 500 mg PO BID PRN PRN Pain #30 tabs 02/08/24 oxycodone-acetaminophen 5 mg-325 mg tablet (Percocet) 1 tab PO Q6H PRN pain 7 days #20 tabs 02/08/24 Hospital Course Summary of Care Provided Hospital Course: patient presented for LTCS for twins and had an uncomplicated delivery. Postoperatively patient had return of bowel and bladder function and was ambulating well, tolerating adequate p.o., and was stable for discharge to home on postop day #2. Discharge medications naproxen and Percocet. Follow-up in office in 2 weeks for incision check in 6 weeks for visit. Routine post section diet and activity instructions. Weight / BMI Weight Weight: 336 lb Body Mass Index (BMI) 59.5 ABG / Lab / Microbiology Data 02/08/24 05:45 D/C Instructions Discharge Diet: No restrictions Discharge Activity: May Not Drive (for 2 weeks or while taking narcotic pain medications.), May Shower and May Take a Tub Bath (in 7 days) May shower in (days): 0 May resume sexual activity in: 4-6 weeks Weight Bearing Status: Full weight bearing Call your doctor if your incision/area has: Continuous Slow Oozing, Sudden Increased Bleeding, Increased Pain/ Swelling, Increased Redness and Foul Smelling Discharge Call your doctor if you observe: Fever of 101 or Higher and Using more than 1 pad per hour (for 2 hours) Suture Line Care: Avoid Pulling/Pushing and Avoid Pinching/Bending Cleanse incision/area with: Soap & Water and Keep Dressing Clean & Dry Please Follow Up With: Rhea Driscoll MD When: Call [phone] to make an appointment for an incision check in 1-2 weeks. Meaningful Use Info Meaningful Use Meaningful Use Diagnoses (Choose all that apply): None applicable Ischemic Stroke Statin Dosing Therapy Reference: STATIN DOSE THERAPY REFERENCE: * Patients > 75 years receive moderate or high dose statin therapy. * Patients 75 years or YOUNGER should receive HIGH intensity statin dose unless contraindicated. You will be required to document reason for non-treatment if statin daily dose does not meet guidelines. HIGH DOSE STATIN THERAPY DAILY Atorvastatin > than or = to 40 mg Rosuvastatin > than or = to 20 mg Amlodipine + Atorvastatin > than or = to 2.5/40 mg Ezetimibe + Simvastatin 10/80 mg Simvastatin 80mg Discharge Plan Admission Admit Date/Time: 02/07/24 09:30 Attending Provider: Rhea Driscoll Primary Care Provider: Humza Hamilton Discharge Orders/Prescriptions Prescriptions: New oxycodone-acetaminophen [Percocet] 5-325 mg tablet 1 tab PO Q6H PRN (Reason: pain) 7 Days Qty: 20 0RF naproxen 500 mg tablet 500 mg PO BID PRN PRN (Reason: Pain) Qty: 30 1RF No Action PNV-Maceo 28-1-300 mg capsule PO folic acid 1 mg tablet 1 mg PO DAILY aspirin 81 mg tablet,delayed release (DR/EC) 81 mg PO DAILY Referrals / Follow Up: Humza Hamilton MD [Primary Care Provider] - Disposition Disposition (needs filled in before D/C Order can be placed): Home, Self Care
[2024-02-10 08:11] VITALS: BP 131/84; PULSE 99; RESP 16; TEMP 36.4
== END 2024-02-10 11:20 | disposition home or self-care (01) | DRG 540 ==
PROVIDERS: Admitting Provider Obstetrics & Gynecology; Visit Provider Obstetrics & Gynecology
PROC: 10D00Z1 Extraction of Products of Conception, Low, Open Approach (ICD-10-PCS; CPT 59514; principal; 2024-02-07 11:45)
DX: O30.033 Twin pregnancy, monochorionic/diamniotic, third trimester (principal); Z37.2 Twins, both liveborn; F32.A Depression, unspecified; F12.10 Cannabis abuse, uncomplicated; O99.214 Obesity complicating childbirth; E66.01 Morbid (severe) obesity due to excess calories; O34.83 Maternal care for other abnormalities of pelvic organs, third trimester; Z79.82 Long term (current) use of aspirin; O99.344 Other mental disorders complicating childbirth; Z86.16 Personal history of COVID-19; Z87.891 Personal history of nicotine dependence; Z67.91 Unspecified blood type, Rh negative; Z3A.36 36 weeks gestation of pregnancy; N83.202 Unspecified ovarian cyst, left side; Z82.79 Family history of other congenital malformations, deformations and chromosomal abnormalities; O99.893 Other specified diseases and conditions complicating puerperium
CPT/HCPCS: 59025; 59050; 85025; 85027; 85461; 86780; 86850; 86900; 86901; 88304; 90384; 99221; 99406; A4216; G0378; J0702; J2405; J2790; J2791

== ENCOUNTER 2024-02-13 14:16 | Emergency (ER) | payer MEDICAID, SELFPAY ==
[2024-02-13 14:16] VITALS: BP 144/102; PULSE 92; RESP 16; TEMP 36; O2SAT 96; BMI 57.9
--- NOTE | 2024-02-13 14:33 | EDS_ITS ---
HPI History of Present Illness Chief Complaint: Wound Detail of Chief Complaint: Concern because of bleeding from incision on the right Informant: patient Onset/Context/Timing Onset: Today Context: Sudden Onset Timing: Intermittent Quality: Small amount of blood lateral aspect of the incision on the right Current Severity: Gone Maximum Severity: Mild Worsened by: Nothing Relieved by: nothing Associated Symptoms Associated Symptoms: None Narrative Narrative: patient presents because of concerned because she had blood from her incision site. She denies fever, chills night sweats. She denies any active bleeding now. She denies abdominal pain. She has no complaints. Prior similar symptoms: No Recent Illness/Hospitalization: Yes PFSH PFS Medical History Spontaneous vaginal delivery Polyhydramnios Encounter for induction of labor Polyhydramnios affecting in third trimester Rh negative state in antepartum period Lab test positive for detection of COVID-19 virus Obesity affecting Anxiety and depression Migraines Ovarian cyst Home Medications ?Medication ?Instructions ?Recorded ?Last Taken ?Type multivit-min no.71-iron fum 28 cap PO 08/17/23 Unknown History mg-folate no.1 1 mg-dha 300 mg capsule (PNV-[place]) aspirin 81 mg tablet,delayed 81 mg PO DAILY 10/20/23 Unknown History release folic acid 1 mg tablet 1 mg PO DAILY 10/20/23 Unknown History naproxen 500 mg tablet 500 mg PO BID PRN PRN Pain #30 tabs 02/08/24 Unknown Rx oxycodone-acetaminophen 5 mg-325 1 tab PO Q6H PRN pain 7 days #20 02/08/24 Unknown Rx mg tablet (Percocet) tabs Allergy/AdvReac Type Severity Reaction Status Date / Time venom-wasp Allergy Severe Anaphylaxis Verified 02/13/24 14:21 tetanus and diphtheria Allergy Hives Verified 02/13/24 14:21 toxoids Family History Sister Congenital heart defect aortic stenosis Other Cancer Diabetes Hypertension Kidney disease Surgical History History of surgery Myringotomy tube status H/O wisdom tooth extraction Social History adopted: No household members: significant other, children and friend(s) number of children: 1 current occupational status: employed current occupation: warehouse pets and animals: Yes pets and animals: dog(s) history of recent travel: No sexually active: Yes Smoking Status: Former smoker Tobacco: How many years used: 6 Electronic Cigarette Use: with nicotine second hand exposure: Yes alcohol intake: never substance use type: does not use well-balanced diet: about half the time caffeine: No eating out: rarely or never during the past year weight has: decreased > 10 lbs what type of physical activity do you participate in: none charity/anabaptist: None seatbelt use: always do you feel safe at home: Yes additional social history: BF- Beto ROS ROS ED Constitutional Constitutional ED: Denies chills, fever(s) or subjective Gastrointestinal Gastrointestinal: Denies abdominal pain, nausea or vomiting Genitourinary Genitourinary ED: Denies dysuria, hematuria or urinary frequency Integumentary Reports other Details: Bleeding incision site Hematologic/Lymphatic Hematologic/Lymphatic: Denies easy bruising or lymphadenopathy EXAM Physical Exam Const Vital Signs: 02/13/24 14:16 Temperature 96.8 F L Temperature Source Temporal Pulse Rate 92 Respiratory Rate 16 Blood Pressure 144/102 H Blood Pressure Mean 116 Pulse Ox 96 Oxygen Delivery Method Room Air Positive well nourished and well developed Constitutional Narrative: BMI is 57.8. General Appearance ED: well developed and NAD Eyes PERRL and EOMs intact bilaterally General Eye ED: Yes pale conjunctiva Resp normal respiratory effort Cardio regular rate and regular rhythm GI GI Narrative: Incision is intact. The lateral aspect of the incision on the right side revealed site of bleeding. There is no fluctuance. There is no erythema or warmth. There is no induration. There is no inguinal lymphadenopathy. Extremity normal to inspection Neuro oriented x3 and CN's II-XII intact bilaterally Sensorium / Orientation: alert Psych mental status grossly normal Skin Skin Narrative: Incision is intact without evidence of infection and no active bleeding. MDM MDM MDM Narrative Medical decision making narrative: Differential diagnosis is bleeding from hematoma, infection. Based on history and physical she probably had a small subcutaneous hematoma that bled. The incision is intact. Will discharge to home. There is no indication for imaging or laboratory work. Discharge Plan Triage Chief Complaint: Wound ED Provider: Adolfo Mendez Dx/Rx/DC Orders Clinical Impression: Post-op bleeding, Morbid obesity with BMI of 50.0-59.9, adult, Encounter for assessment of wound Instructions: ED Post Op Wound Check, General Prescriptions: No Action PNV-[place] 28-1-300 mg capsule PO folic acid 1 mg tablet 1 mg PO DAILY aspirin 81 mg tablet,delayed release (DR/EC) 81 mg PO DAILY oxycodone-acetaminophen [Percocet] 5-325 mg tablet 1 tab PO Q6H PRN (Reason: pain) 7 Days Qty: 20 0RF naproxen 500 mg tablet 500 mg PO BID PRN PRN (Reason: Pain) Qty: 30 1RF Primary Care Provider: Humza Hamilton Referrals: Humza Hamilton MD [Primary Care Provider] - Rhea Driscoll MD [Med Staff - Active Staff] - As Needed Print Language: Yoruba Disposition Disposition: Home, Self Care
== END 2024-02-13 14:43 | disposition home or self-care (01) ==
LOC: ED 14:40
PROVIDERS: Emergency Provider Emergency Medicine; Visit Provider Emergency Medicine
DX: L76.22 Postprocedural hemorrhage of skin and subcutaneous tissue following other procedure (principal); E66.01 Morbid (severe) obesity due to excess calories; Z68.43 Body mass index [BMI] 50.0-59.9, adult; Z87.891 Personal history of nicotine dependence
CPT/HCPCS: 99282

== ENCOUNTER → 2024-03-24 | Outpatient (CLI) | payer MEDICAID, SELFPAY ==
[2024-03-30 10:09] LABS: HPV APTIMA, High Risk Negative (Negative)
== END | disposition home or self-care (01) ==
LOC: LABSPEC 16:49
PROVIDERS: Referring Provider Advanced Practice Midwife; Visit Provider Advanced Practice Midwife
DX: Z12.4 Encounter for screening for malignant neoplasm of cervix (principal)
CPT/HCPCS: 87624; 88175; G0145

== ENCOUNTER → 2024-07-13 | Outpatient (CLI) | payer MEDICAID, SELFPAY ==
[2024-07-13 14:50] LABS: Absolute Lymphocyte Count 2.62 X10^3/uL (0.83-4.51); Absolute Neutrophil Count 7.1 X10^3/uL (2.0-7.7); Basophil# 0.05 X10^3/uL; Basophil% 0.5 % (0-1); Eosinophil# 0.38 X10^3/uL; Eosinophils% 3.5 % (0-5); Hematocrit 40.7 % (37-47); Hemoglobin 13.3 g/dL (12.0-15.0); Lymphocyte # 2.62 X10^3/ul (0.83-4.51); Mean Corp Hgb Conc 32.7 g/dL (32-36); Mean Corpuscular Hgb 28.1 pg (27.0-32.0); Mean Platelet Vol. 8.8 fl (6.2-12.0); Monocyte# 0.73 X10^3/uL; Monocyte% 6.7 % (0-10); NRBC Flagged by Analyzer 0 % (0-5); Neutrophil # 7.12 X10^3/uL (2.7-7.7); Platelet Count 238 K/mm3 (150-450); RBC Distribution Width CV 11.9 % (11.6-14.6); RBC Distribution Width SD 37.4 fl (35.1-43.9); Red Blood Count 4.73 M/mm3 (4.2-5.4); White Blood Count 10.9 K/mm3 (4.4-11.0)
[2024-07-13 15:14] LABS: Hemoglobin A1c 5.6 % (3.8-5.6)
[2024-07-13 15:17] LABS: ALB/GLOB Ratio 0.7 RATIO (0.9-2.4); AST(SGOT) 17 U/L (15-37); Alanine Aminotransfer ALT/SGPT 24 U/L (13-56); Albumin, Serum 3.2 g/dL (3.2-5.0); Alkaline Phosphatase 63 U/L (45-117); Anion Gap 7 (5-15); BUN 9 mg/dL (7-18); BUN/Creat Ratio 14.1 RATIO (10-20); Chloride 109 mmol/L (98-107); Creatinine, Serum 0.64 mg/dL (0.55-1.02); EST Glomerular Filtration Rate 120 mL/min (>60); Est Glom Filt Rate - Afr Amer 145 mL/min (>60); Globulin 4.3 g/dL (2.2-4.2); Glucose 99 mg/dL (74-106); Potassium 3.7 mmol/L (3.5-5.1); Protein, Total 7.5 g/dL (6.4-8.2); Sodium Level 139 mmol/L (136-145); T4 Free Direct 1.09 ng/dL (0.76-1.46); Thyroid Stim Hormone (TSH) 0.743 uIU/mL (0.358-3.740)
== END | disposition home or self-care (01) ==
LOC: BWCLAB 13:18
PROVIDERS: Referring Provider Nurse Practitioner Family; Visit Provider Nurse Practitioner Family
DX: E66.9 Obesity, unspecified (principal); Z13.1 Encounter for screening for diabetes mellitus
CPT/HCPCS: 36415; 80053; 83036; 84439; 84443; 85025